=== PATIENT | female | born 1960 | race African-American/Black ===

== ENCOUNTER 2017-03-11 08:53 | Inpatient (IN) | payer OTHER ==
[2017-03-11 09:08] VITALS: BMI 27.3
--- NOTE | 2017-03-11 10:19 | HP ---
CIWA Score - CIWA Score Nausea/Vomitin-Mild Nausea/No Vomiting Muscle Tremors: 4-Moderate,w/Arms Extend Anxiety: 4-Mod. Anxious/Guarded Agitation: 1-Slight > Activity Paroxysmal Sweats: 1-Minimal Palms Moist Orientation: 0-Oriented Tacttile Disturbances: 0-None Auditory Disturbances: 0-None Visual Disturbances: 1-Very Mild Sensitivity Headache: 2-Mild CIWA-Ar Total Score: 14 Admission ROS BHS - HPI Chief Complaint: I can't stop drinking Allergies/Adverse Reactions: Allergies Allergy/AdvReac Type Severity Reaction Status Date / Time metoprolol Allergy Severe Itching Verified 03/11/17 10:06 History of Present Illness: 56 yo woman here for detox from alcohol. Previous detox here 07/11/2016 but relapsed. Patient has not had seizures but has had black outs. History of rehab when living in [place]. Also with pacemaker since January 2016 but has not had it checked since October 2016. Exam Limitations: Clinical Condition - Ebola screening Have you traveled outside of the country in the last 21 days: No Have you had contact with anyone from an Ebola affected area: No Have you been sick,other than usual withdrawal symptoms: No Do you have a fever: No - Review of Systems Constitutional: Chills, Loss of Appetite, Night Sweats, Changes in sleep, Weakness EENT: reports: Blurred Vision Respiratory: reports: No Symptoms reported Cardiac: reports: No Symptoms Reported GI: reports: Poor Appetite, Indigestion : reports: Frequency Musculoskeletal: reports: Back Pain, Muscle Pain Integumentary: reports: Dryness, Rash (inner flexors both arms) Neuro: reports: Headache Endocrine: reports: No Symptoms Reported Hematology: reports: No Symptoms Reported Psychiatric: reports: Judgement Intact, Mood/Affect Appropiate, Orientated x3, Anxious Other Systems: Reviewed and Negative Patient History - Patient Medical History Hx Anemia: No Hx Asthma: No Hx Chronic Obstructive Pulmonary Disease (COPD): No Hx Cancer: No Hx Cardiac Disorders: Yes (HYPERTROPHIC CARDIOMYOPATHY) Hx Congestive Heart Failure: No Hx Hypertension: Yes (on med) Hx Hypercholesterolemia: Yes (on med) Hx Pacemaker: Yes (in 02/10) HX Cerebrovascular Accident: No Hx Seizures: No Hx Dementia: No Hx Diabetes: No Hx Gastrointestinal Disorders: No Hx Liver Disease: No Hx Genitourinary Disorders: No Hx Sexually Transmitted Disorders: No Hx Renal Disease (ESRD): No Hx Thyroid Disease: No Hx Human Immunodeficiency Virus (HIV): No Hx Hepatitis C: No Hx Depression: Yes (hx psych) Hx Suicide Attempt: No Hx Bipolar Disorder: No Hx Schizophrenia: No - Patient Surgical History Past Surgical History: No Hx Neurologic Surgery: No Hx Cataract Extraction: No Hx Cardiac Surgery: Yes (s/p pace maker in 02/10) Hx Lung Surgery: No Hx Breast Surgery: No Hx Breast Biopsy: No Hx Abdominal Surgery: No Hx Appendectomy: No Hx Cholecystectomy: No Hx Genitourinary Surgery: No Hx Section: No Hx Orthopedic Surgery: No Anesthesia Reaction: No - PPD History Previous Implant?: Yes Documented Results: Negative w/proof Date: 02/08/16 Results: 0 mm PPD to be Administered?: Yes - Reproductive History Patient is a Female of Child Bearing Age (11 -55 yrs old): No - Smoking Cessation Smoking history: Current every day smoker Have you smoked in the past 12 months: Yes Aproximately how many cigarettes per day: 10 Cigars Per Day: 0 Hx Chewing Tobacco Use: No Initiated information on smoking cessation: Yes 'Breaking Loose' booklet given: 03/11/17 (give on floor) - Substance & Tx. History Hx Alcohol Use: Yes Hx Substance Use: No Substance Use Type: Alcohol Hx Substance Use Treatment: Yes (detox [facility] 06/2016, rehab in [facility]) - Substances Abused Alcohol Route: Oral Frequency: Daily Amount used: beer- 16 (12oz) Age of first use: 12 Date of Last Use: 03/10/17 Family Disease History - Family Disease History Family Disease History: Heart Disease: Sister (htn, etoh), Daughter, CA: Father (lung cancer (alive)), Other: Father, Mother (dementia (alive)), Sister, Daughter Admission Physical Exam BHS - Vital Signs Vital Signs: Vital Signs - 24 hr 03/11/17 08:56 Temperature 97.7 F Pulse Rate 84 Respiratory 20 Rate Blood Pressure 178/92 - Physical General Appearance: Yes: Nourished, Appropriately Dressed, Mild Distress, Anxious HEENTM: Yes: Hearing grossly Normal, Normal ENT Inspection, Normocephalic, Normal Voice, Pharynx Normal Respiratory: Yes: Normal Breath Sounds, No Respiratory Distress Neck: Yes: No masses,lesions,Nodules, Supple, Trachea in good position Breast: Yes: Breast Exam Deferred Cardiology: Yes: Regular Rhythm, Regular Rate, Surgical Scar (pacemaker) Abdominal: Yes: Soft Genitourinary: Yes: Frequency Back: Yes: Normal Inspection Musculoskeletal: Yes: full range of Motion, Gait Steady, Back pain Extremities: Yes: Normal Inspection, Normal Range of Motion, Non-Tender Neurological: Yes: Fully Oriented, Alert, Normal Mood/Affect, Normal Response Integumentary: Yes: Normal Color, Warm, Rash (faint erythematous rash both inner elbows) Lymphatic: Yes: Within Normal Limits - Diagnostic (1) Alcohol dependence with uncomplicated withdrawal Current Visit: Yes Status: Chronic (2) Hypertensive hypertrophic cardiomyopathy, without heart failure Current Visit: Yes Status: Chronic (3) Nicotine dependence Current Visit: Yes Status: Chronic Qualifiers: Nicotine product type: cigarettes Substance use status: uncomplicated Qualified Code(s): F17.210 - Nicotine dependence, cigarettes, uncomplicated (4) History of cardiac pacemaker in situ Current Visit: Yes Status: Chronic (5) Hypertrophic cardiomyopathy Current Visit: Yes Status: Chronic (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
[2017-03-11] MEDS ORDERED: IBUPROFEN 400 MG TABLET (FP) PO PRN (10:28)
[2017-03-11] MEDS ORDERED: MAG HYDROX/AL HYDROX/SIMETH 30 ML UNIT-DOSE CUP PO PRN (10:28)
[2017-03-11] MEDS ORDERED: NICOTINE POLACRILEX 4 MG GUM BUC PRN (10:28)
[2017-03-11] MEDS ORDERED: guaiFENesin/D-METHORPHAN HB 10 ML UNIT-DOSE CUPS PO PRN (10:28)
[2017-03-11] MEDS ORDERED: chlordiazePOXIDE HCL 25 MG CAPSULE PO PRN (10:28)
[2017-03-11] MEDS ORDERED: hydrOXYzine PAMOATE 50 MG CAPSULE (FP) PO PRN (10:28)
[2017-03-11] MEDS ORDERED: LOPERAMIDE HCL 2 MG CAPSULE PO PRN (10:28)
[2017-03-11] MEDS ORDERED: MAGNESIUM CITRATE 300 ML BOTTLE PO PRN (10:28)
[2017-03-11] MEDS ORDERED: P-EPHED 60MG/TRIPROLIDI 2.5MG TABLET PO PRN (10:28)
[2017-03-11] MEDS ORDERED: MENTHOL/PHENOL 1 EACH UD MM PRN (10:28)
[2017-03-11] MEDS ORDERED: MAGNESIUM HYDROX 2400MG/30ML ORAL SUSPENSION 30 ML CUP PO PRN (10:28)
[2017-03-11] MEDS ORDERED: ACETAMINOPHEN 325 MG TABLET (FP) PO PRN (11:18)
[2017-03-11] MEDS ORDERED: chlordiazePOXIDE HCL 25 MG CAPSULE PO ONE ×2 (11:30→14:15)
[2017-03-11] MEDS: ATENOLOL 25 MG TABLET (FP) PO SCH (14:27)
[2017-03-11] MEDS: CLOTRIMAZOLE 1% CREAM 15 GM TUBE TP SCH ×2 (14:28→22:06)
[2017-03-11] MEDS: CLOPIDOGREL BISULFATE 75 MG TABLET (FP) PO SCH (14:29)
[2017-03-11] MEDS: VERAPAMIL HCL 120 MG CAP SUSTAINED RELEASE PO SCH (14:29)
[2017-03-11] MEDS: ASPIRIN 81 MG CHEWABLE TABLETS PO SCH (14:30)
--- NOTE | 2017-03-11 14:48 | CONSULT ---
[facility] Psychiatric Consult - Data Date of interview: 03/11/17 Admission source: [facility] Identifying data: Readmission to [facility] for this 56 y/o AA female seeking detox treatment on for alcohol dependence.Patient is single,a mother of one,domiciled,unemployed and supported on [facility] benefits. Substance Abuse History: Patient admits to using alcohol since age 12.Currently consumes a daily average of 14-15 X 12 oz of beer.Last use was on 03/10/17.Ms Hassan presents with a history of previous detox/rehab care in [facility]. Medical History: Remarkable for hypertension,back pain,hypercholesterolemia and hypertrophic cardiomyopathy (pacemaker in place since January 2016).Allergic to metoprolol. Psychiatric History: No reported history of psychiatric hospitalizations.Patient indicates that she had a brief stay on a psychiatric josé in [facility] six years ago," just because a bed was not available on the detox unit " and got transferred as soon a vacancy opened in detox.Ms Hassan does however endorse the diagnosis of MDD without a history of regular treatment.Patient relocated to [facility] about three years ago.No history of OPD care.Not on psychotropic medications with the exception of trazodone 50 mg/hs to address insomnia (prescribed by primary care doctor).Patient denies history of suicide attempts. Physical/Sexual Abuse/Trauma History: Patiuent denies. Additional Comment: Drug Screen is negative. Mental Status Exam - Mental Status Exam Alert and Oriented to: Time, Place, Person Cognitive Function: Good Patient Appearance: Well Groomed Mood: Hopeful, Euthymic Affect: Appropriate, Normal Range Patient Behavior: Fatigued, Cooperative (well-mannered) Speech Pattern: Clear, Appropriate Voice Loudness: Normal Thought Process: Intact, Goal Oriented Thought Disorder: Not Present Hallucinations: Denies Suicidal Ideation: Denies Homicidal Ideation: Denies Insight/Judgement: Fair Sleep: Poorly, Difficulty falling asleep Appetite: Fair Muscle strength/Tone: Normal Gait/Station: Normal Psychiatric Findings - Problem List ([place] 1, 2,3) (1) Alcohol dependence with uncomplicated withdrawal Current Visit: Yes Status: Acute (2) Nicotine dependence Current Visit: Yes Status: Acute Qualifiers: Nicotine product type: cigarettes Substance use status: uncomplicated Qualified Code(s): F17.210 - Nicotine dependence, cigarettes, uncomplicated (3) Alcohol-induced mood disorder Current Visit: Yes Status: Acute (4) History of cardiac pacemaker in situ Current Visit: Yes Status: Chronic (5) Hypertrophic cardiomyopathy Current Visit: Yes Status: Chronic (6) HTN (hypertension) Current Visit: Yes Status: Chronic (7) Hyperlipidemia Current Visit: Yes Status: Chronic (8) Insomnia Current Visit: Yes Status: Acute - Initial Treatment Plan Initial Treatment Plan: Previous records are reviewed.S report is appreciated.Psychoeducation provided in this session.Detoxification is under way.Trazodone 50 mg po hs is ordered at patient's request.Side effects/benefits of trazodone are discussed with patient.She endorses past history of favorable response/good tolerability to the drug.Consent (verbal) given.Observation.
[2017-03-11] MEDS: chlordiazePOXIDE HCL 25 MG CAPSULE PO SCH ×2 (17:22→22:05)
[2017-03-11 18:21] LABS: URINE APPEARANCE SLCLOUDY; URINE BILIRUBIN NEGATIVE (NEGATIVE); URINE BLOOD NEGATIVE (NEGATIVE); URINE COLOR LTYELLOW; URINE GLUCOSE (UA) NEGATIVE (NEGATIVE); URINE KETONE NEGATIVE (NEGATIVE); URINE NITRITE NEGATIVE (NEGATIVE); URINE PROTEIN NEGATIVE (NEGATIVE); URINE UROBILINOGEN NEGATIVE mg/dL (0.2-1.0)
[2017-03-11 18:24] LABS: URINE LEUK ESTERASE 3+ (NEGATIVE)
[2017-03-11 18:32] LABS: URINE BACTERIA RARE /hpf (NONE SEEN); URINE RBC 1 /hpf (0-3); URINE WBC 12 /hpf (3-5)
[2017-03-11] MEDS ORDERED: ATORVASTATIN CA 40 MG TABLET (FP) ONE (21:12)
[2017-03-11] MEDS ORDERED: diphenhydrAMINE HCL 50 MG CAPSULE PO PRN (22:00)
[2017-03-11] MEDS: traZODone HCL 50 MG TABLET (FP) PO SCH ×2 (22:05→22:09)
[2017-03-11] MEDS: ATORVASTATIN CA 80 MG TABLET (FP) PO SCH (22:06)
[2017-03-11] MEDS: THIAMINE HCL 100 MG TABLET (FP) PO SCH (22:07)
[2017-03-12] MEDS: chlordiazePOXIDE HCL 25 MG CAPSULE PO SCH ×4 (06:17→22:29)
--- NOTE | 2017-03-12 07:57 | PN ---
S CIWA - CIWA Score Nausea/Vomitin Muscle Tremors: 3 Anxiety: 3 Agitation: 2 Paroxysmal Sweats: 1-Minimal Palms Moist Orientation: 0-Oriented Tacttile Disturbances: 1-Very Mild Itch/Numbness Auditory Disturbances: 1-Very Mild Visual Disturbances: 1-Very Mild Sensitivity Headache: 2-Mild CIWA-Ar Total Score: 17 BHS Progress Note (SOAP) Subjective: alert,irritable,anxious,interrupted sleep,tremor,pain in the lower back Objective: Vital Signs Temperature 97.7 F 03/12/17 06:00 Pulse Rate 77 03/12/17 06:00 Respiratory Rate 18 03/12/17 06:00 Blood Pressure 141/71 03/12/17 06:00 O2 Sat by Pulse Oximetry (%) ekg nsr inverted t in avl no chest pain,no sob,no dizziness labs pending Assessment: 03/12/17 07:57 withdrawal symptom Plan: continue detox
[2017-03-12 10:06] LABS: MCH 31.9 pg (25.7-33.7); MCHC 32.8 g/dl (32.0-36.0); MEAN CELL VOLUME 97.1 fl (80-96); MEAN PLT VOLUME 8.9 fl (7.5-11.1); PLATELET COUNT 205 K/MM3 (134-434); RDW 13.7 % (11.6-15.6)
[2017-03-12] MEDS: ASPIRIN 81 MG CHEWABLE TABLETS PO SCH (10:17)
[2017-03-12] MEDS: CLOTRIMAZOLE 1% CREAM 15 GM TUBE TP SCH ×2 (10:18→22:28)
[2017-03-12] MEDS: ATENOLOL 25 MG TABLET (FP) PO SCH (10:18)
[2017-03-12] MEDS: VERAPAMIL HCL 120 MG CAP SUSTAINED RELEASE PO SCH (10:18)
[2017-03-12] MEDS: PRENATAL VITAMINS W/ FOLIC ACID TABLET (FP) PO SCH (10:19)
[2017-03-12] MEDS: CLOPIDOGREL BISULFATE 75 MG TABLET (FP) PO SCH (10:19)
[2017-03-12 10:25] LABS: ALK PHOS 68 U/L (45-117); ANION GAP 7 (8-16); BILIRUBIN,TOTAL 0.4 mg/dL (0.2-1.0); CALCIUM 9.2 mg/dL (8.5-10.1); CO2 28 mmol/L (21-32); CREATININE 0.8 mg/dL (0.55-1.02); GLUCOSE,RANDOM 89 mg/dL (74-106); SGOT/AST 17 U/L (15-37); SGPT/ALT 28 U/L (12-78); TOT PROT 5.9 g/dl (6.4-8.2)
--- NOTE | 2017-03-12 13:27 | EKG ---
Test Reason : Blood Pressure : / mmHG Vent. Rate : 078 BPM Atrial Rate : 078 BPM P-R Int : 138 ms QRS Dur : 094 ms QT Int : 416 ms P-R-T Axes : 061 004 092 degrees QTc Int : 474 ms NORMAL SINUS RHYTHM RIGHT ATRIAL ENLARGEMENT VOLTAGE CRITERIA FOR LEFT VENTRICULAR HYPERTROPHY ABNORMAL QRS-T ANGLE, CONSIDER PRIMARY T WAVE ABNORMALITY ABNORMAL ECG WHEN COMPARED WITH ECG OF 09-FEB-2016 16:28, NO SIGNIFICANT CHANGE WAS FOUND Confirmed by HINA BORJAS MD ([id number]) on 03/12/2017 1:27:40 PM Referred By: Confirmed By:HINA BORJAS MD
[2017-03-12] MEDS ORDERED: ATORVASTATIN CA 40 MG TABLET (FP) ONE (20:29)
[2017-03-12] MEDS: ATORVASTATIN CA 80 MG TABLET (FP) PO SCH (22:28)
[2017-03-12] MEDS: THIAMINE HCL 100 MG TABLET (FP) PO SCH (22:29)
[2017-03-12] MEDS: traZODone HCL 50 MG TABLET (FP) PO SCH (22:29)
[2017-03-12] MEDS: CYCLOBENZAPRINE HCL 10 MG TABLET (FP) PO PRN (22:29)
[2017-03-13] MEDS: chlordiazePOXIDE HCL 25 MG CAPSULE PO SCH ×2 (05:43→10:26)
--- NOTE | 2017-03-13 08:43 | PN ---
[facility] CIWA - CIWA Score Nausea/Vomitin-No Nausea/No Vomiting Muscle Tremors: 3 Anxiety: 2 Agitation: 3 Paroxysmal Sweats: 3 Orientation: 0-Oriented Tacttile Disturbances: 0-None Auditory Disturbances: 0-None Visual Disturbances: 0-None Headache: 0-None Present CIWA-Ar Total Score: 11 S Progress Note (SOAP) Subjective: feeling better sweats anxious Objective: 03/13/17 08:41 Vital Signs Temperature 97.9 F 03/13/17 06:05 Pulse Rate 74 03/13/17 06:05 Respiratory Rate 18 03/13/17 06:05 Blood Pressure 131/74 03/13/17 06:05 O2 Sat by Pulse Oximetry (%) Laboratory Tests 03/11/17 03/12/17 03/12/17 15:52 07:15 07:15 WBC 7.0 RBC 4.34 Hgb 13.8 Hct 42.1 MCV 97.1 H MCH 31.9 MCHC 32.8 RDW 13.7 Plt Count 205 MPV 8.9 Sodium 141 Potassium 4.1 Chloride 106 Carbon Dioxide 28 Anion Gap 7 L BUN 14 D Creatinine 0.8 Creat Clearance w eGFR > 60 Random Glucose 89 D Calcium 9.2 Total Bilirubin 0.4 AST 17 ALT 28 Alkaline Phosphatase 68 Total Protein 5.9 L Albumin 3.0 L Urine Color Ltyellow Urine Appearance Slcloudy Urine pH 5.0 Ur Specific [place] <= 1.005 Urine Protein Negative Urine Glucose (UA) Negative Urine Ketones Negative Urine Blood Negative Urine Nitrite Negative Urine Bilirubin Negative Urine Urobilinogen Negative Ur Leukocyte Esterase 3+ H Urine RBC 1 Urine WBC 12 Ur Epithelial Cells Few Urine Bacteria Rare RPR Titer 03/12/17 07:15 WBC RBC Hgb Hct MCV MCH MCHC RDW Plt Count MPV Sodium Potassium Chloride Carbon Dioxide Anion Gap BUN Creatinine Creat Clearance w eGFR Random Glucose Calcium Total Bilirubin AST ALT Alkaline Phosphatase Total Protein Albumin Urine Color Urine Appearance Urine pH Ur Specific [place] Urine Protein Urine Glucose (UA) Urine Ketones Urine Blood Urine Nitrite Urine Bilirubin Urine Urobilinogen Ur Leukocyte Esterase Urine RBC Urine WBC Ur Epithelial Cells Urine Bacteria RPR Titer Nonreactive repeat u/a awake/alert ambulating no acute distress Assessment: 03/13/17 08:42 mild withdrawal sx Plan: continue detox increase fluids f/u pending labs
[2017-03-13] MEDS: CLOTRIMAZOLE 1% CREAM 15 GM TUBE TP SCH ×2 (10:25→22:20)
[2017-03-13] MEDS: PRENATAL VITAMINS W/ FOLIC ACID TABLET (FP) PO SCH (10:25)
[2017-03-13] MEDS: CLOPIDOGREL BISULFATE 75 MG TABLET (FP) PO SCH (10:26)
[2017-03-13] MEDS: ASPIRIN 81 MG CHEWABLE TABLETS PO SCH (10:26)
[2017-03-13] MEDS: LIDOCAINE 5% TOPICAL PATCH TP SCH (10:26)
[2017-03-13] MEDS: VERAPAMIL HCL 120 MG CAP SUSTAINED RELEASE PO SCH (10:27)
[2017-03-13] MEDS: ATENOLOL 25 MG TABLET (FP) PO SCH (10:28)
[2017-03-13] MEDS: CYCLOBENZAPRINE HCL 10 MG TABLET (FP) PO PRN ×2 (10:29→22:19)
[2017-03-13 16:03] LABS: URINE APPEARANCE CLEAR; URINE BILIRUBIN NEGATIVE (NEGATIVE); URINE BLOOD NEGATIVE (NEGATIVE); URINE COLOR LTYELLOW; URINE GLUCOSE (UA) NEGATIVE (NEGATIVE); URINE KETONE NEGATIVE (NEGATIVE); URINE NITRITE NEGATIVE (NEGATIVE); URINE PROTEIN NEGATIVE (NEGATIVE); URINE UROBILINOGEN NEGATIVE mg/dL (0.2-1.0)
[2017-03-13 16:04] LABS: URINE LEUK ESTERASE TRACE (NEGATIVE)
[2017-03-13 16:30] LABS: URINE MUCUS RARE; URINE RBC 1 /hpf (0-3); URINE WBC 1 /hpf (3-5)
[2017-03-13] MEDS: chlordiazePOXIDE 5 MG CAPSULE PO SCH ×2 (17:31→22:19)
[2017-03-13] MEDS ORDERED: ATORVASTATIN CA 40 MG TABLET (FP) ONE (20:42)
[2017-03-13] MEDS: THIAMINE HCL 100 MG TABLET (FP) PO SCH (22:19)
[2017-03-13] MEDS: LIDOCAINE PATCH REMOVAL MC SCH (22:20)
[2017-03-13] MEDS: ATORVASTATIN CA 80 MG TABLET (FP) PO SCH (22:20)
[2017-03-13] MEDS: traZODone HCL 50 MG TABLET (FP) PO SCH (22:23)
[2017-03-14] MEDS: chlordiazePOXIDE 5 MG CAPSULE PO SCH ×2 (05:57→10:20)
--- NOTE | 2017-03-14 10:09 | PN ---
BHS Progress Note (SOAP) Subjective: feeling better some sweats anxious Objective: 03/14/17 10:08 Vital Signs Temperature 97.9 F 03/14/17 06:29 Pulse Rate 71 03/14/17 06:29 Respiratory Rate 18 03/14/17 06:29 Blood Pressure 135/76 03/14/17 06:29 O2 Sat by Pulse Oximetry (%) Laboratory Tests 03/11/17 03/12/17 03/12/17 15:52 07:15 07:15 WBC 7.0 RBC 4.34 Hgb 13.8 Hct 42.1 MCV 97.1 H MCH 31.9 MCHC 32.8 RDW 13.7 Plt Count 205 MPV 8.9 Sodium 141 Potassium 4.1 Chloride 106 Carbon Dioxide 28 Anion Gap 7 L BUN 14 D Creatinine 0.8 Creat Clearance w eGFR > 60 Random Glucose 89 D Calcium 9.2 Total Bilirubin 0.4 AST 17 ALT 28 Alkaline Phosphatase 68 Total Protein 5.9 L Albumin 3.0 L Urine Color Ltyellow Urine Appearance Slcloudy Urine pH 5.0 Ur Specific [place] <= 1.005 Urine Protein Negative Urine Glucose (UA) Negative Urine Ketones Negative Urine Blood Negative Urine Nitrite Negative Urine Bilirubin Negative Urine Urobilinogen Negative Ur Leukocyte Esterase 3+ H Urine RBC 1 Urine WBC 12 Ur Epithelial Cells Few Urine Bacteria Rare Urine Mucus RPR Titer 03/12/17 03/13/17 07:15 10:10 WBC RBC Hgb Hct MCV MCH MCHC RDW Plt Count MPV Sodium Potassium Chloride Carbon Dioxide Anion Gap BUN Creatinine Creat Clearance w eGFR Random Glucose Calcium Total Bilirubin AST ALT Alkaline Phosphatase Total Protein Albumin Urine Color Ltyellow Urine Appearance Clear Urine pH 5.0 Ur Specific [place] 1.015 Urine Protein Negative Urine Glucose (UA) Negative Urine Ketones Negative Urine Blood Negative Urine Nitrite Negative Urine Bilirubin Negative Urine Urobilinogen Negative Ur Leukocyte Esterase Trace H D Urine RBC 1 Urine WBC 1 Ur Epithelial Cells Rare Urine Bacteria Urine Mucus Rare RPR Titer Nonreactive awake/alert ambulating no acute distress Assessment: 03/14/17 10:08 withdrawal sx Plan: continue detox increase fluids
[2017-03-14] MEDS: ATENOLOL 25 MG TABLET (FP) PO SCH (10:19)
[2017-03-14] MEDS: PRENATAL VITAMINS W/ FOLIC ACID TABLET (FP) PO SCH (10:19)
[2017-03-14] MEDS: ASPIRIN 81 MG CHEWABLE TABLETS PO SCH (10:20)
[2017-03-14] MEDS: CYCLOBENZAPRINE HCL 10 MG TABLET (FP) PO PRN (10:20)
[2017-03-14] MEDS: CLOPIDOGREL BISULFATE 75 MG TABLET (FP) PO SCH (10:20)
[2017-03-14] MEDS: VERAPAMIL HCL 120 MG CAP SUSTAINED RELEASE PO SCH (10:21)
[2017-03-14] MEDS: CLOTRIMAZOLE 1% CREAM 15 GM TUBE TP SCH ×2 (10:21→22:30)
[2017-03-14] MEDS: LIDOCAINE 5% TOPICAL PATCH TP SCH (10:21)
[2017-03-14] MEDS: chlordiazePOXIDE HCL 10 MG CAPSULE PO SCH ×2 (19:24→22:30)
[2017-03-14] MEDS ORDERED: ATORVASTATIN CA 40 MG TABLET (FP) ONE (21:29)
[2017-03-14] MEDS: LIDOCAINE PATCH REMOVAL MC SCH (22:30)
[2017-03-14] MEDS: ATORVASTATIN CA 80 MG TABLET (FP) PO SCH (22:30)
[2017-03-14] MEDS: THIAMINE HCL 100 MG TABLET (FP) PO SCH (22:30)
[2017-03-14] MEDS: traZODone HCL 50 MG TABLET (FP) PO SCH (22:31)
[2017-03-15] MEDS: chlordiazePOXIDE HCL 10 MG CAPSULE PO SCH (05:45)
[2017-03-15 06:51] VITALS: BP 127/77; PULSE 72; TEMP 97
--- NOTE | 2017-03-15 09:58 | DS ---
[facility] Detox Discharge Summary Admission Date: 03/11/17 Discharge Date: 03/15/17 - History Present History: Alcohol Dependence - Physical Exam Results Vital Signs: Vital Signs Temperature 97 F L 03/15/17 06:50 Pulse Rate 72 03/15/17 06:50 Respiratory Rate 18 03/15/17 06:50 Blood Pressure 127/77 03/15/17 06:50 O2 Sat by Pulse Oximetry (%) - Treatment Hospital Course: Detox Protocol Followed, Detoxed Safely, Responded well, Discharged Condition Good, Rehab Referral Accepted - Medication Discharge Medications: Ambulatory Orders Verapamil HCl [Verapamil ER] 120 mg PO DAILY 02/06/16 Aspirin [ASA -] 81 mg PO DAILY 07/13/16 Atenolol [Tenormin -] 25 mg PO DAILY 07/13/16 Atorvastatin Ca [Lipitor] 80 mg PO HS 07/13/16 Clopidogrel Bisulfate [Clopidogrel] 75 mg PO DAILY 07/13/16 Trazodone HCl [Desyrel -] 50 mg PO HS #30 tablet 07/14/16 Trazodone HCl 50 mg PO HS #30 tablet 03/11/17 - Diagnosis (1) Alcohol-induced mood disorder Current Visit: Yes Status: Acute (2) Insomnia Current Visit: Yes Status: Acute (3) Nicotine dependence Current Visit: Yes Status: Chronic Qualifiers: Nicotine product type: cigarettes Substance use status: uncomplicated Qualified Code(s): F17.210 - Nicotine dependence, cigarettes, uncomplicated (4) 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 (5) HTN (hypertension) Current Visit: Yes Status: Chronic Qualifiers: Hypertension type: essential hypertension Qualified Code(s): I10 - Essential (primary) hypertension (6) History of cardiac pacemaker in situ Current Visit: Yes Status: Chronic (7) Hyperlipidemia Current Visit: Yes Status: Chronic Qualifiers: Hyperlipidemia type: pure hypercholesterolemia Qualified Code(s): E78.00 - Pure hypercholesterolemia, unspecified; E78.0 - Pure hypercholesterolemia (8) Hypertensive hypertrophic cardiomyopathy, without heart failure Current Visit: Yes Status: Chronic (9) Hypertrophic cardiomyopathy Current Visit: Yes Status: Chronic (10) Abnormal EKG Current Visit: No Status: Acute (11) Chest pain Current Visit: No Status: Acute (12) Drug-induced mood disorder Current Visit: No Status: Acute (13) NSVT (nonsustained ventricular tachycardia) Current Visit: No Status: Acute (14) Syncope Current Visit: No Status: Acute (15) Tachycardia Current Visit: No Status: Acute (16) Depression Current Visit: No Status: Chronic - AMA Did Patient Leave Against Medical Advice: No
[2017-03-15] MEDS: LIDOCAINE 5% TOPICAL PATCH TP SCH (10:00)
[2017-03-15] MEDS: CLOPIDOGREL BISULFATE 75 MG TABLET (FP) PO SCH (10:04)
[2017-03-15] MEDS: ATENOLOL 25 MG TABLET (FP) PO SCH (10:04)
[2017-03-15] MEDS: PRENATAL VITAMINS W/ FOLIC ACID TABLET (FP) PO SCH (10:04)
[2017-03-15] MEDS: VERAPAMIL HCL 120 MG CAP SUSTAINED RELEASE PO SCH (10:04)
[2017-03-15] MEDS: CLOTRIMAZOLE 1% CREAM 15 GM TUBE TP SCH (10:04)
[2017-03-15] MEDS: ASPIRIN 81 MG CHEWABLE TABLETS PO SCH (10:04)
== END 2017-03-15 10:25 | disposition home or self-care (01) | DRG 897 ==
LOC: YASAS 08:53 → Y6N 10:47 → Y3N 11:38 → Y6N 12:30
PROVIDERS: ADMIT Internal Medicine; ATTEND Internal Medicine
PROC: HZ2ZZZZ Detoxification Services for Substance Abuse Treatment (ICD-10-PCS; principal; 2017-03-15)
DX: F19.230 Other psychoactive substance dependence with withdrawal, uncomplicated (principal); I42.2 Other hypertrophic cardiomyopathy; F10.230 Alcohol dependence with withdrawal, uncomplicated; F17.210 Nicotine dependence, cigarettes, uncomplicated; F10.24 Alcohol dependence with alcohol-induced mood disorder; I10 Essential (primary) hypertension; E78.5 Hyperlipidemia, unspecified; E78.00 Pure hypercholesterolemia, unspecified; F32.9 Major depressive disorder, single episode, unspecified; B37.2 Candidiasis of skin and nail; Z95.0 Presence of cardiac pacemaker
CPT/HCPCS: 36415; 80053; 81003; 81015; 85027; 86593; 87086; 93005; 93010

== ENCOUNTER 2018-07-18 18:01 | Inpatient (IN) | payer OTHER ==
[2018-07-18 19:35] LABS: BASO % 1.5 % (0-2.0); EOS % 0.7 % (0-4.5); HEMATOCRIT 40.9 % (32.4-45.2); HEMOGLOBIN 14.4 GM/dL (10.7-15.3); MCH 32.9 pg (25.7-33.7); MCHC 35.2 g/dl (32.0-36.0); MEAN CELL VOLUME 93.5 fl (80-96); MEAN PLT VOLUME 9.1 fl (7.5-11.1); MONO % 10.8 % (3.8-10.2); PLATELET COUNT 243 K/MM3 (134-434); RBC 4.38 M/mm3 (3.60-5.2); RDW 14.1 % (11.6-15.6); WHITE BLOOD COUNT 6.5 K/mm3 (4.0-10.0)
[2018-07-18 19:51] LABS: URINE APPEARANCE CLEAR; URINE BILIRUBIN NEGATIVE (<2.0 mg/dL); URINE COLOR STRAW; URINE GLUCOSE (UA) NEGATIVE (NEGATIVE); URINE KETONE NEGATIVE (NEGATIVE); URINE LEUK ESTERASE 2+ (NEGATIVE); URINE NITRITE NEGATIVE (NEGATIVE); URINE PROTEIN NEGATIVE (NEGATIVE); URINE UROBILINOGEN NEGATIVE mg/dL (0.2-1.0)
[2018-07-18 19:56] LABS: EPI CELLS RARE /HPF (FEW)
--- NOTE | 2018-07-18 20:05 | PDOC ---
Attending Attestation - HPI HPI: 07/18/18 20:29 The patient is a 58 year old female, with a significant past medical history of HOCM (s/p AICD placement and noncompliant with medications), HTN, HLD,CAD ( needs stenting), and alcohol abuse (increased alcohol usage this week), who presents to the emergency department s/p 3 shocks from her defibrillator. As per patient, while walking her dog she began to feel increasingly short of breath and felt her AICD go off 3 times in approximately 2 minutes, prompting her visit to the ER tonight. She denies any loss of consciousness, head/neck trauma, or chest pain. Allergies: Metoprolol Social history: Alcohol abuse. Wardsperson: Dr. Carrillo <Mellisa Mckinley - Last Filed: 07/18/18 20:29> - Resident Resident Name: ArreolaCheri - ED Attending Attestation I have performed the following: I have examined & evaluated the patient, The case was reviewed & discussed with the resident, I agree w/resident's findings & plan, Exceptions are as noted - Physicial Exam PE: 07/18/18 21:14 Agree with exam documented by resident - Medical Decision Making 07/18/18 21:18 Patient with many cardiac risk factor here stating she felt her AICD shock her several times today. Denies any chest pain but states that she felt some extra beats, mild SOB, lightheadedness immediately prior to being shocked. She was walking her dog when the episode occurred. EKG with pvcs, prolonged QT Concern for malignant rhythm Follow up labs, interrogate device Admit 07/18/18 21:21 Received call from [facility], device shocked her out of VTach after 9 shocks Lab shows trop of 0.7, considering multiple shocks this result is likely secondary to direct electrical cardiac injury but will trend trop. ACS remains on the differential Cardiology eval Admit tele <Morgan Tate - Last Filed: 07/18/18 21:23> Attestations - Attestations 07/18/18 20:29 Documentation prepared by Mellisa Mckinley, acting as medical imaging technologist for Morgan Tate MD. <Mellisa Mckinley - Last Filed: 07/18/18 20:29>
[2018-07-18 20:12] LABS: ALBUMIN 3.9 g/dl (3.4-5.0); ALK PHOS 79 U/L (45-117); ANION GAP 11 MMOL/L (8-16); BILIRUBIN,TOTAL 0.7 mg/dL (0.2-1); BLOOD UREA NITROGEN 12 mg/dL (7-18); CALCIUM 9.1 mg/dL (8.5-10.1); CHLORIDE 103 mmol/L (98-107); CO2 25 mmol/L (21-32); CREATININE 0.8 mg/dL (0.55-1.3); GLUCOSE,RANDOM 71 mg/dL (74-106); MAGNESIUM 2.1 mg/dL (1.8-2.4); PHOSPHOROUS 3.6 mg/dL (2.5-4.9); POTASSIUM 4.4 mmol/L (3.5-5.1); SGOT/AST 26 U/L (15-37); SGPT/ALT 24 U/L (13-61); SODIUM 139 mmol/L (136-145); TOT PROT 7.4 g/dl (6.4-8.2)
[2018-07-18 20:17] LABS: INR 0.96 (0.83-1.09); PROTHROMBIN TIME (PATIENT) 11.3 SEC (9.7-13.0)
--- NOTE | 2018-07-18 20:17 | PDOC ---
History of Present Illness - General Chief Complaint: Irregular Heart Beat Stated Complaint: DEFIBRILLATOR ISSUES Time Seen by Provider: 07/18/18 18:44 History Source: Patient, Family Exam Limitations: No Limitations - History of Present Illness Initial Comments: 58YOF with h/o HOCM (s/p AICD placement, not taking her medications atenolol, verapamil, clopidogrel x2 months, sees Dr. Bass but no visit in >1 year) , HTN, HLD (not taking her atorvastatin), CAD (told needs stents placed but has not followed up), and EtOH use disorder (previously was admitted to detox, has increased her EtOH intake over the past few weeks); was BIBEMS after her AICD shocked her 3 times in ~2 minutes at about 5:10 pm. She had been walking her dog outside and exerting herself, felt SOB and a bit lightheaded, then was shocked at that time. She otherwise denies any symptoms of illness lately. Did not lose consciousness, no repeated events. Past History - Past Medical History Allergies/Adverse Reactions: Allergies Allergy/AdvReac Type Severity Reaction Status Date / Time metoprolol Allergy Severe Itching Verified 07/18/18 18:14 Home Medications: Ambulatory Orders Atenolol [Tenormin -] 25 mg PO DAILY 07/13/16 Aspirin [ASA -] 81 mg PO DAILY #30 tab 03/15/17 Atorvastatin Ca [Lipitor] 80 mg PO HS #30 tab 03/15/17 Clopidogrel Bisulfate [Clopidogrel] 75 mg PO DAILY #30 tab 03/15/17 Verapamil HCl [Verapamil Sr] 120 mg PO DAILY #30 cap 03/15/17 Anemia: No Asthma: No Cancer: No Cardiac Disorders: Yes (HYPERTROPHIC CARDIOMYOPATHY) CVA: No COPD: No CHF: No Dementia: No Diabetes: No GI Disorders: No Disorders: No HTN: Yes (on med) Hypercholesterolemia: Yes (on med) Kidney Stones: No Liver Disease: No Seizures: No Thyroid Disease: No - Surgical History Abdominal Surgery: No Appendectomy: No Cardiac Surgery: Yes (s/p pace maker in 02/10) Cholecystectomy: No Lung Surgery: No Neurologic Surgery: No Orthopedic Surgery: No - Reproductive History PID: No - Suicide/Smoking/Psychosocial Hx Smoking History: Current every day smoker Have you smoked in the past 12 months: Yes Number of Cigarettes Smoked Daily: 20 Cigars Per Day: 0 Information on smoking cessation initiated: No 'Breaking Loose' booklet given: 03/11/17 Hx Alcohol Use: Yes (beer) Drug/Substance Use Hx: No Substance Use Type: Alcohol Hx Substance Use Treatment: Yes (detox [facility] 06/2016, rehab in [facility]) Review of Systems - Review of Systems Able to Perform ROS?: Yes Comments:: GEN: generalized weakness (resolved), no fever, chills, malaise, or weight change HEENT: no ear pain, sore throat, vision change, or eye pain CV: lightheadedness, no chest pain, palpitations, syncope, or edema RESP: SOB, no cough, or wheezing GI: no abdominal pain, nausea, vomiting, diarrhea, constipation, or white/black/ bloody stool : no dysuria, hematuria, incontinence, retention, bleeding, or discharge MSK: no neck/back pain, muscle weakness/pain, or joint swelling/pain NEURO: no headache, seizure, vertigo, numbness, tingling, or focal weakness PSYCH: substance use (EtOH), no behavior change SKIN: no jaundice, no rash ROS otherwise negative except as noted in HPI *Physical Exam - Vital Signs Last Vital Signs Temp Pulse Resp BP Pulse Ox 98.0 F 102 H 20 145/109 H 99 07/18/18 18:04 07/18/18 19:05 07/18/18 19:05 07/18/18 19:05 07/18/18 19:07 GENERAL: nontoxic appearing but tearful, A/Ox4, no distress, answers questions appropriately, daughter at bedside HEENT: PERRLA, EOMI, moist mucous membranes NECK/BACK: no midline ttp, no spinal stepoff or deformity, no hematoma, full ROM , neck supple CHEST WALL: AICD in place CARDIOVASCULAR: regular rate/rhythm with +ectopy, very strong pulses palpable through chest wall diffusely, +systolic murmur, no gallop or rub, strong peripheral pulses, capillary refill <2 seconds, extremities wwp, no edema LUNGS/RESPIRATORY: no respiratory distress, CTAB GI/ABDOMEN: symmetric [id number], normoactive BS, soft, no ttp, no midline pulsatile masses : no CVA tenderness EXTREMITIES: no muscle atrophy, no acute deformity, no edema SKIN: warm and dry, no pallor, no jaundice, no rash, no bruising, no skin breakdown, no cuts, no lesions NEUROLOGICAL: GCS 15, CN II-XII grossly intact, 5/5 strength proximally and distally, no facial droop Heart Score/ECG Review #1 07/18/18 21:20 Sinus rhythm, rate 88, one PVC, normal axis, QTc 488, <1 box non-pathological THANG in aVL and V6, new TWI in II, III, aVF, V12 ED Treatment Course - LABORATORY CBC & Chemistry Diagram: 07/18/18 19:10 07/18/18 19:10 - ADDITIONAL ORDERS Additional order review: Laboratory Results 07/18/18 07/18/18 07/18/18 19:40 19:16 19:10 Creatine Kinase Cancelled Troponin I Cancelled B-Natriuretic Peptide 1858.7 H Urine Color Straw Urine Appearance Clear Urine pH 6.0 Ur Specific [place] 1.003 L Urine Protein Negative Urine Glucose (UA) Negative Urine Ketones Negative Urine Blood Negative Urine Nitrite Negative Urine Bilirubin Negative Urine Urobilinogen Negative Ur Leukocyte Esterase 2+ H D Urine WBC (Auto) 15 Urine RBC (Auto) 2 Ur Epithelial Cells Rare 07/18/18 19:10 RBC 4.38 MCV 93.5 MCHC 35.2 RDW 14.1 MPV 9.1 Neutrophils % 64.0 D Lymphocytes % 23.0 D Monocytes % 10.8 H Eosinophils % 0.7 Basophils % 1.5 - RADIOLOGY Radiology Studies Ordered: Category Date Time Status CHEST PA & LAT [RAD] Stat Radiology 07/18/18 19:14 Completed Medical Decision Making - Medical Decision Making 58 YOF with HOCM and AICD indwelling, p/w SOB and lightheadedness, then shocked by her AICD. Initial Vital Signs Temp Pulse Resp BP Pulse Ox 98.0 F 98 H 16 160/99 100 07/18/18 18:04 07/18/18 18:04 07/18/18 18:04 07/18/18 18:04 07/18/18 18:04 Exam: As noted in Physical Exam section. DDX IBNLT: Biggest concern is that she received the AICD shocks in response to potentially lethal arrhythmia, given that she did have symptoms preceding the shock. Also considered are AICD malfunction and we will interrogate it here in the ED. Potentially HOCM, CHF, ACS, electrolyte derangement given drinking, etc. W/U ordered: EKG CXR Labs TX ordered: IVF, monitor EKG: Reviewed; results as noted in ECG Review section. CXR: Cardiomegaly Laboratory Tests 07/18/18 07/18/18 07/18/18 19:10 19:10 19:10 WBC 6.5 RBC 4.38 Hgb 14.4 Hct 40.9 MCV 93.5 MCH 32.9 MCHC 35.2 RDW 14.1 Plt Count 243 MPV 9.1 Absolute Neuts (auto) 4.2 Neutrophils % 64.0 D Lymphocytes % 23.0 D Monocytes % 10.8 H Eosinophils % 0.7 Basophils % 1.5 Nucleated RBC % 0 PT with INR INR Sodium 139 Potassium 4.4 Chloride 103 Carbon Dioxide 25 Anion Gap 11 BUN 12 Creatinine 0.8 Creat Clearance w eGFR > 60 Random Glucose 71 L Calcium 9.1 Phosphorus 3.6 Magnesium 2.1 Total Bilirubin 0.7 AST 26 ALT 24 Alkaline Phosphatase 79 Creatine Kinase 165 Cancelled Creatine Kinase Index 6.4 H* CK-MB (CK-2) 10.6 H Troponin I 0.70 H* Cancelled B-Natriuretic Peptide Total Protein 7.4 Albumin 3.9 Urine Color Urine Appearance Urine pH Ur Specific [place] Urine Protein Urine Glucose (UA) Urine Ketones Urine Blood Urine Nitrite Urine Bilirubin Urine Urobilinogen Ur Leukocyte Esterase Urine WBC (Auto) Urine RBC (Auto) Ur Epithelial Cells 07/18/18 07/18/18 07/18/18 19:10 19:16 19:40 WBC RBC Hgb Hct MCV MCH MCHC RDW Plt Count MPV Absolute Neuts (auto) Neutrophils % Lymphocytes % Monocytes % Eosinophils % Basophils % Nucleated RBC % PT with INR 11.30 INR 0.96 Sodium Potassium Chloride Carbon Dioxide Anion Gap BUN Creatinine Creat Clearance w eGFR Random Glucose Calcium Phosphorus Magnesium Total Bilirubin AST ALT Alkaline Phosphatase Creatine Kinase Creatine Kinase Index CK-MB (CK-2) Troponin I B-Natriuretic Peptide 1858.7 H Total Protein Albumin Urine Color Straw Urine Appearance Clear Urine pH 6.0 Ur Specific [place] 1.003 L Urine Protein Negative Urine Glucose (UA) Negative Urine Ketones Negative Urine Blood Negative Urine Nitrite Negative Urine Bilirubin Negative Urine Urobilinogen Negative Ur Leukocyte Esterase 2+ H D Urine WBC (Auto) 15 Urine RBC (Auto) 2 Ur Epithelial Cells Rare Reassessment: Patient states no symptoms. 07/18/18 21:[address] Talbot. He recommends amiodarone 150mg IVPB given over 10 min. After that will give amiodarone 1 mg/min x6 hours. After that will give amiodarone 0.5 mg/min x18 hours. Admit to telemetry IP if they are able to manage the amio drip. I am placing consult order to Dr. Bass. Pt reports exertional syncope and h/o multiple relatives with heart conditions and AICD. Pt at higher risk given her comorbidities. The Pt is unsafe for discharge at this time. They require further hospital observation, workup, and treatment. Microblog sent to [facility] for admission. Blank Decision to Admit order is placed per ED protocol. 07/18/18 23:14 I spoke with resident on Medicine; patient going to IP Tele Dr. Dumont. Decision to Admit order corrected with Dr. Dumont's name. Patient with HR90, BP 100/80, occasional NSVT on monitor (~6 beats). Patient got amiodarone bolus; now the 1 mg/min solution is running. Daughter Tito has left the department for the night. The patient has given verbal release of information to this daughter. Tito's phone number is [phone] home, cell. *DC/Admit/Observation/Transfer Diagnosis at time of Disposition: Ventricular tachycardia, HOCM (hypertrophic obstructive cardiomyopathy), AICD discharge, Elevated troponin, Alcohol use disorder - Discharge Dispostion Condition at time of disposition: Guarded Decision to Admit order: Yes - Referrals Referrals: Aby Jeronimo [Primary Care Provider] - - Patient Instructions - Post Discharge Activity
[2018-07-18] MEDS ORDERED: chlordiazePOXIDE HCL 25 MG CAPSULE PO ONE (20:29)
[2018-07-18] MEDS ORDERED: chlordiazePOXIDE HCL 25 MG CAPSULE ONE (20:34)
[2018-07-18] MEDS ORDERED: MAGNESIUM SULF 50% (8.12 MEQ/2 ML-1 GM VIAL) IVPB ONE (21:45)
[2018-07-18] MEDS ORDERED: AMIODARONE IN DEXTROSE,ISO-OSM 150 MG/100 ML BAG IVPB ONE (22:26)
[2018-07-18] MEDS ORDERED: AMIODARONE IN DEXTROSE,ISO-OSM 360 MG/200 ML BAG IVPB ONE (22:28)
--- NOTE | 2018-07-18 22:28 | PN ---
Teaching Attending Note Name of Resident: Tee Franks ATTENDING PHYSICIAN STATEMENT I saw and evaluated the patient. I reviewed the resident's note and discussed the case with the resident. I agree with the resident's findings and plan as documented. SUBJECTIVE: Patient is a 58 year old woman with history of hypertrophic cardiomyopathy (s/p AICD placement, not taking her medications atenolol, verapamil, clopidogrel x2 months, sees Dr. Bass but no visit in >1 year), HTN, HLD (not taking her atorvastatin), CAD (told needs stents placed but has not followed up), Tobacco use and alcohol abuse (previously was admitted to detox, has increased her EtOH intake over the past few weeks); was BIBEMS after her AICD shocked her 3 times in ~2 minutes at about 5:10 pm. She had been walking her dog outside and exerting herself, felt SOB and a bit lightheaded, then was shocked at that time. She otherwise denies any symptoms of illness lately. Did not lose consciousness, no repeated events. OBJECTIVE: Alert Vital Signs Period Temp Pulse Resp BP Sys/Jennings Pulse Ox Last 24 Hr 98.0 F 82-102 16-20 134-187/93-109 99-100 HEENT: No Jaundice, eye redness or discharge, PERRLA, EOMI. Normocephalic, atraumatic. External ears are normal; hearing is impaired. No nasal discharge. Neck: Supple, nontender. No palpable adenopathy or thyromegaly. No JVD Chest: Good effort. Clear to auscultation and percussion. Heart: Regular with ectopics. No S3, rub or murmur Abdomen: Not distended, soft, nontender and no HSM. No rebound or guarding. Normoactive bowel sounds. Ext: Peripheral pulses intact. No leg edema. Skin: Warm and dry. No petechiae, rash or ecchymosis. Neuro: Alert. Oriented x3. Not tremulous. CN 2-12 grossly intact. Sensation grossly intact in all four extremities and DTR are symmetric. Current Medications Generic Name Dose Route Start Last Admin Trade Name Freq PRN Reason Stop Dose Admin Amiodarone HCl/Dextrose 360 mg in 200 mls @ 33.333 mls/hr 07/18/18 22:28 22:57 Nexterone 360 Mg/200 Ml Bag IVPB 07/19/18 04:27 33.333 mls/hr ONCE ONE Administration Protocol 1 MG/MIN Amiodarone HCl/Dextrose 360 mg in 200 mls @ 16.667 mls/hr 07/19/18 05:00 Nexterone 360 Mg/200 Ml Bag IVPB TITR YADY Protocol 0.5 MG/MIN Home Medications Medication Instructions Recorded Atenolol [Tenormin -] 25 mg PO DAILY 07/13/16 Aspirin [ASA -] 81 mg PO DAILY #30 tab 03/15/17 Atorvastatin Ca [Lipitor] 80 mg PO HS #30 tab 03/15/17 Clopidogrel Bisulfate [Clopidogrel] 75 mg PO DAILY #30 tab 03/15/17 Verapamil HCl [Verapamil Sr] 120 mg PO DAILY #30 cap 03/15/17 Abnormal Lab Results 07/18/18 07/18/18 07/18/18 19:10 19:10 19:16 Monocytes % 10.8 H Random Glucose 71 L Creatine Kinase Index 6.4 H* CK-MB (CK-2) 10.6 H Troponin I 0.70 H* B-Natriuretic Peptide 1858.7 H Ur Specific [place] Ur Leukocyte Esterase 07/18/18 19:40 Monocytes % Random Glucose Creatine Kinase Index CK-MB (CK-2) Troponin I B-Natriuretic Peptide Ur Specific [place] 1.003 L Ur Leukocyte Esterase 2+ H D ASSESSMENT AND PLAN: 1. Ventricular tachycardia with AICD shocks - Patient has no chest pain or SOB now. Initial troponin was 0.70 and EKG shows NSR with ectopics and no ischemic ST-T wave changes. Cardiology consulted and patient is getting IV amiodarone. Patient is counseled about compliance with her medications. AICD will be interrogated. Has features of UTI but no symptoms. Will treat with Macrobid and send urine for culture. 2. Tobacco Use We will provide patient all the necessary assistance to facilitate smoking cessation and prescribe Nicotine patch. Will consult nephrology and avoid nephrotoxic agents such as NSAIDS, aminoglycosides, contrast dyes and certain Alternative medicine products. 3. Alcohol abuse - Implement [facility] alcohol withdrawal protocol, fall and aspiration precautions. Treat with thiamine and folic acid and monitor electrolytes (Ca,Mg,K,P). Carpenter Prototype patient about abstaining from alcohol and refer to alcohol detox upon discharge. 4. DVT prophylaxis - Lovenox 40 mg SQ q 24 hours. 5. Advance directives - Full code
[2018-07-18] MEDS ORDERED: AMIODARONE IN DEXTROSE,ISO-OSM 360 MG/200 ML BAG IVPB SCH (22:30)
--- NOTE | 2018-07-18 23:57 | HP ---
CHIEF COMPLAINT: AICD shock PCP: Dr. Jeronimo HISTORY OF PRESENT ILLNESS: 58 yo female with PMH Hypertrophic cardiomyopathy (s/p AICD placement), HTN, HLD , CAD (pt was told previously she likely needed stenting but has not followed up ), admitted following an episode of SOB, chest pressure and multiple AICD shocks. She states that she regularly has SOB and chest pain on exertion as frequently as every day, though never as severe as today. She states she is usually able to rest and feel better. Today she was out walking the dog. She returned inside and said she felt a shock prior to sitting down. Her daughter was present, helped her sit down and called for an ambulance. She states she was shocked a total of 3 times in the span of a couple minutes. Of note she states she has not taken any of her medications in over a year, though she is prescribed atenolol, verapamil, plavix, and lipitor. She also endorses daily alcohol use of about 12 beers with multiple past detox admissions. Her last drink was today prior to the episode that brought her into the hospital. She denies any history of withdrawal seizures. She currently denies any symptoms and states that she feels better. She denies any fevers, chills, n/v/d, abdominal pain, dysuria, or hematuria. ER course was notable for: (1) AICD interrogation: Persistent Vtach with total of 9 shocks today, regular rate and rythm upon arrival, Multiple NSVTs 5-6 beats noted on tele monitor (2) Cardiology consulted: Amiodarone drip (3) Trop 0.07 Recent Travel: none PAST MEDICAL HISTORY: Hypertrophic cardiomyopathy (s/p AICD placement), HTN, HLD, CAD (pt was told previously she likely needed stenting but has not followed up) PAST SURGICAL HISTORY: AICD placement Social History: Smokin-6 cigarettes a day, down from 1 ppd Alcohol: 12 beers daily Drugs: Denies Family History: Allergies metoprolol Allergy (Severe, Verified 07/18/18 18:14) Itching HOME MEDICATIONS: Home Medications Medication Instructions Recorded Atenolol [Tenormin -] 25 mg PO DAILY 07/13/16 Aspirin [ASA -] 81 mg PO DAILY #30 tab 03/15/17 Atorvastatin Ca [Lipitor] 80 mg PO HS #30 tab 03/15/17 Clopidogrel Bisulfate [Clopidogrel] 75 mg PO DAILY #30 tab 03/15/17 Verapamil HCl [Verapamil Sr] 120 mg PO DAILY #30 cap 03/15/17 REVIEW OF SYSTEMS CONSTITUTIONAL: Absent: fever, chills, diaphoresis, generalized weakness, malaise, loss of appetite, weight change HEENT: Absent: rhinorrhea, nasal congestion, throat pain, throat swelling, difficulty swallowing, mouth swelling, ear pain, eye pain, visual changes CARDIOVASCULAR: chest pain Absent: , syncope, palpitations, irregular heart rate, lightheadedness, peripheral edema RESPIRATORY: shortness of breath, dyspnea with exertion, Absent: cough, orthopnea, wheezing, stridor, hemoptysis GASTROINTESTINAL: Absent: abdominal pain, abdominal distension, nausea, vomiting, diarrhea, constipation, melena, hematochezia GENITOURINARY: Absent: dysuria, frequency, urgency, hesitancy, hematuria, flank pain, genital pain MUSCULOSKELETAL: Absent: myalgia, arthralgia, joint swelling, back pain, neck pain SKIN: Absent: rash, itching, pallor HEMATOLOGIC/IMMUNOLOGIC: Absent: easy bleeding, easy bruising, lymphadenopathy, frequent infections ENDOCRINE: Absent: unexplained weight gain, unexplained weight loss, heat intolerance, cold intolerance NEUROLOGIC: Absent: headache, focal weakness or paresthesias, dizziness, unsteady gait, seizure, mental status changes, bladder or bowel incontinence PSYCHIATRIC: Absent: anxiety, depression, suicidal or homicidal ideation, hallucinations. PHYSICAL EXAMINATION Vital Signs - 24 hr 07/18/18 07/18/18 07/18/18 18:04 18:30 19:05 Temperature 98.0 F Pulse Rate 98 H Pulse Rate [ 101 H 102 H Apical] Respiratory 16 20 20 Rate Blood Pressure 160/99 Blood Pressure 145/109 H [Left Arm] Blood Pressure 187/93 H [Right Arm] O2 Sat by Pulse 100 99 100 Oximetry (%) 07/18/18 07/18/18 19:07 20:39 Temperature Pulse Rate Pulse Rate [ 82 Apical] Respiratory 20 Rate Blood Pressure Blood Pressure 134/94 [Left Arm] Blood Pressure [Right Arm] O2 Sat by Pulse 99 100 Oximetry (%) GENERAL: A&O, no acute distress HEAD: Normocephalic, atraumatic. EYES: PERRL, no scleral icterus EARS, NOSE, THROAT: oropharynx clear without exudates. Moist mucous membranes. NECK: supple without lymphadenopathy LUNGS: CTA b/l, no crackles or wheezes HEART: Regular rate and rhythm, normal S1 and S2 without murmur ABDOMEN: Soft, nontender to palpation, normoactive bowel sounds MUSCULOSKELETAL: No bony deformities or tenderness. EXTREMITIES: 2+ pulses, warm, well-perfused. No peripheral edema. NEUROLOGICAL: Cranial nerves II-XII grossly intact. Normal speech. PSYCHIATRIC: Cooperative. Good eye contact. Appropriate mood and affect. Laboratory Results - last 24 hr 07/18/18 07/18/18 07/18/18 19:10 19:10 19:10 WBC 6.5 RBC 4.38 Hgb 14.4 Hct 40.9 MCV 93.5 MCH 32.9 MCHC 35.2 RDW 14.1 Plt Count 243 MPV 9.1 Absolute Neuts (auto) 4.2 Neutrophils % 64.0 D Lymphocytes % 23.0 D Monocytes % 10.8 H Eosinophils % 0.7 Basophils % 1.5 Nucleated RBC % 0 PT with INR INR Sodium 139 Potassium 4.4 Chloride 103 Carbon Dioxide 25 Anion Gap 11 BUN 12 Creatinine 0.8 Creat Clearance w eGFR > 60 Random Glucose 71 L Calcium 9.1 Phosphorus 3.6 Magnesium 2.1 Total Bilirubin 0.7 AST 26 ALT 24 Alkaline Phosphatase 79 Creatine Kinase 165 Cancelled Creatine Kinase Index 6.4 H* CK-MB (CK-2) 10.6 H Troponin I 0.70 H* Cancelled B-Natriuretic Peptide Total Protein 7.4 Albumin 3.9 Urine Color Urine Appearance Urine pH Ur Specific [place] Urine Protein Urine Glucose (UA) Urine Ketones Urine Blood Urine Nitrite Urine Bilirubin Urine Urobilinogen Ur Leukocyte Esterase Urine WBC (Auto) Urine RBC (Auto) Ur Epithelial Cells 07/18/18 07/18/18 07/18/18 19:10 19:16 19:40 WBC RBC Hgb Hct MCV MCH MCHC RDW Plt Count MPV Absolute Neuts (auto) Neutrophils % Lymphocytes % Monocytes % Eosinophils % Basophils % Nucleated RBC % PT with INR 11.30 INR 0.96 Sodium Potassium Chloride Carbon Dioxide Anion Gap BUN Creatinine Creat Clearance w eGFR Random Glucose Calcium Phosphorus Magnesium Total Bilirubin AST ALT Alkaline Phosphatase Creatine Kinase Creatine Kinase Index CK-MB (CK-2) Troponin I B-Natriuretic Peptide 1858.7 H Total Protein Albumin Urine Color Straw Urine Appearance Clear Urine pH 6.0 Ur Specific [place] 1.003 L Urine Protein Negative Urine Glucose (UA) Negative Urine Ketones Negative Urine Blood Negative Urine Nitrite Negative Urine Bilirubin Negative Urine Urobilinogen Negative Ur Leukocyte Esterase 2+ H D Urine WBC (Auto) 15 Urine RBC (Auto) 2 Ur Epithelial Cells Rare ASSESSMENT/PLAN: 58 yo female with PMH Hypertrophic cardiomyopathy (s/p AICD placement), HTN, HLD , CAD, admitted following an episode of SOB, chest pressure and multiple AICD shocks. Hypertrophic Cardiomyopathy s/p AICD defribrillation for VTach -AICD interrogation: Persistent Vtach with total of 9 shocks today -Regular rate and rythm upon arrival, Multiple NSVTs 5-6 beats noted on tele monitor -Cardiology Consulted, Amio drip -Pt received 1 gm Mg in ED -Monitor and replete lytes as needed -Troponin 0.07, EKG noted, Troponin likely due to AICD defibrillations -Trend troponin and repeat EKG pending -Telemetry monitoring Alcohol Abuse -Reports about 12 beers a day -Multiple detox admissions previously at [facility] -Pt states she was feeling anxious earlier in ED, given librium -CIWA currently 0 following librium dose -Will monitor for signs of withdrawal and initiate librium protocol as needed -Thiamine and Folic acid Asymptomatic Pyuria -UA with 2+ LE and 15 WBCs -Denies any dysuria, hematuria, frequency, suprapubic pain -Afebrile, Serum WBC 6.5 -Will start treatment as possible UTI could have been exacerbating factor HTN -hold home meds for now pending cardiology evaluation and recommendations HLD -Lipitor 80 mg PO HS CAD -Pt has been told she needs stents previously, though 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 - New Patient This patient is new to me today: Yes Date on this admission: 07/19/18 - Critical Care Critical Care patient: No
[2018-07-19] MEDS: NITROFURANTOIN MACROCRYSTAL 50 MG CAPSULE (FP) PO SCH ×4 (00:55→18:08)
[2018-07-19] MEDS ORDERED: NITROFURANTOIN MACROCRYSTAL 50 MG CAPSULE (FP) ONE ×3 (04:26→12:45)
[2018-07-19] MEDS ORDERED: AMIODARONE IN DEXTROSE,ISO-OSM 360 MG/200 ML BAG IVPB SCH (05:00)
[2018-07-19 06:54] LABS: BASO % 0.7 % (0-2.0); EOS % 1.3 % (0-4.5); HEMATOCRIT 41.7 % (32.4-45.2); HEMOGLOBIN 14.6 GM/dL (10.7-15.3); LYMPH % 25.9 % (8-40); MCH 32.8 pg (25.7-33.7); MEAN CELL VOLUME 93.7 fl (80-96); MEAN PLT VOLUME 8.9 fl (7.5-11.1); MONO % 8.9 % (3.8-10.2); NEUT % 63.2 % (42.8-82.8); PLATELET COUNT 229 K/MM3 (134-434); RBC 4.45 M/mm3 (3.60-5.2); RDW 13.8 % (11.6-15.6); WHITE BLOOD COUNT 6.4 K/mm3 (4.0-10.0)
[2018-07-19 07:24] LABS: ALBUMIN 3.5 g/dl (3.4-5.0); ALK PHOS 73 U/L (45-117); ANION GAP 8 MMOL/L (8-16); BILIRUBIN,TOTAL 0.5 mg/dL (0.2-1); BLOOD UREA NITROGEN 17 mg/dL (7-18); CALCIUM 8.7 mg/dL (8.5-10.1); CHLORIDE 105 mmol/L (98-107); CO2 25 mmol/L (21-32); GLUCOSE,RANDOM 97 mg/dL (74-106); MAGNESIUM 2.4 mg/dL (1.8-2.4); PHOSPHOROUS 4.2 mg/dL (2.5-4.9); POTASSIUM 4.6 mmol/L (3.5-5.1); SGOT/AST 39 U/L (15-37); SGPT/ALT 24 U/L (13-61); SODIUM 138 mmol/L (136-145); TOT PROT 6.9 g/dl (6.4-8.2)
[2018-07-19] MEDS ORDERED: ATENOLOL 25 MG TABLET (FP) ONE (08:42)
[2018-07-19] MEDS ORDERED: HEPARIN NA (PORCINE) 5,000 UNITS/ML 1ML VIAL IVPUSH PRN ×2 (09:12)
--- NOTE | 2018-07-19 09:17 | CON.CARD ---
Cardiology Consult (text) - Consultation Consultation Note: Consult Dictated IMP: History of hypertrophic CM s/p ICD ?Hx CAD Multiple ICD shocks, ER interrogation showed episodes VT +TnI Hx ETOH abuse Medication non-adherence REC: 1. Can d/c amio gtts and resume home meds: Verapamil and Atenolol. 2. Start Heparin gtts while trending cardiac enzymes 3. Echo 4. Tele 5. Keep K+ and Mg2+ repleted. 6. Will obtain/review old records: will need repeat ischemic eval prior to discharge 7. Watch for ETOH withdrawal
[2018-07-19] MEDS ORDERED: HEPARIN INFUSION - 25,000 UNITS/500 ML INFUS.BAG IVPB ONE (09:36)
[2018-07-19] MEDS ORDERED: FOLIC ACID 1 MG TABLET (FP) ONE (09:44)
[2018-07-19] MEDS: FOLIC ACID 1 MG TABLET (FP) PO SCH (09:45)
[2018-07-19] MEDS: HEPARIN - 25,000 UNIT in SODIUM CHLORIDE 495 ML IV SCH ×2 (09:45→21:32)
[2018-07-19] MEDS: ATENOLOL 25 MG TABLET (FP) PO SCH (09:45)
[2018-07-19] MEDS: VERAPAMIL HCL 120 MG TABLET PO SCH ×2 (09:47→21:31)
[2018-07-19] MEDS: THIAMINE HCL 100 MG TABLET (FP) PO SCH (09:47)
--- NOTE | 2018-07-19 09:59 | CONS ---
DATE OF CONSULTATION: 07/19/[address] Carrillo. HISTORY OF PRESENT ILLNESS: The patient is a 58-year-old female admitted to the cardiac unit after her ICD discharged multiple times yesterday. Her past medical history is significant for hypertrophic cardiomyopathy diagnosed around 2009, status post ICD for nonsustained VT and syncope in 2015 at [facility]. She presents to the ER with multiple episodes of ICD discharges, she describes about 8 episodes which began yesterday. She has chronic dyspnea and chronic exertional chest discomfort and has been off of her atenolol and verapamil for 2 months. She is also an alcoholic and drinks approximately 8 beers per day. Patient also reports a history of possible coronary artery disease on cardiac catheterization several years ago and reports that she needed stents but "never got them." Her electrolytes were normal, troponin is mildly elevated and she was started on IV amiodarone bolus and then drip for control of VT. An interrogation of her device was performed by the emergency department physician with the physician relations representative for her [email or web address] device and ER reported multiple episodes of VT for which she was given appropriate shocks. I searched for those strips of interrogation in the ER and they are currently unavailable for review. The patient is currently chest pain free and has not had any further shocks overnight. She currently denies chest pain or shortness of breath. PAST MEDICAL HISTORY: As outlined above. ALLERGIES: She has adverse previous reactions to METOPROLOL. HOME MEDICATIONS: Included verapamil 120 mg p.o. b.i.d.; clopidogrel 75 mg p.o. daily; atorvastatin 80 mg p.o. at bedtime; atenolol 25 mg p.o. daily; aspirin 81 mg p.o. daily. FAMILY HISTORY: Negative for sudden cardiac or other relatives with hypertrophic cardiomyopathy. SOCIAL HISTORY: She smokes cigarettes, approximately half pack per day. Drinks about 8 or 9 beers per day. She has previously been in detox. She denies illegal drug use. PHYSICAL EXAMINATION: HEENT: Anicteric. Vital Signs: Afebrile, temperature 98.5, pulse 79, blood pressure ranging between 102 and 110 over 60 to 90, O2 saturation is 99 on room air. Neck: No bruits. No JVD. Heart: S1, 2 regular. There is a systolic murmur audible at the apex which increases with hand lead generation representative. Chest: Clear. Abdomen: Soft, nontender. Extremities: No edema. IMAGING: Her chest x-ray showed cardiomegaly with no acute disease. LABORATORIES: White count 6.4, hematocrit 41.7, platelets 229. INR 0.96. Sodium 138, potassium 4.6, creatinine is normal. LFTs were normal. CK 165. Initial troponin 0.7, increased to 1.62, then 1.59. BNP was 1858. Her ECGs showed normal sinus rhythm at 96 beats per minute with left ventricular hypertrophy, nonspecific intraventricular conduction delay and T-wave inversions in I, aVL with early repolarization/J-point elevation in the lateral leads. IMPRESSION: 1. History of hypertrophic cardiomyopathy, status post implantable cardioverter-defibrillator. 2. Possible history of coronary artery disease, poor historian. 3. Multiple implantable cardioverter-defibrillator shocks, upon emergency room interrogation consistent with ventricular tachycardia - strips currently not available for review. 4. Positive troponin. 5. History of alcohol abuse. 6. Medication nonadherence. RECOMMENDATIONS: 1. Discontinue amiodarone drip. Her shocks were delivered for VT presumably due to noncompliance with her usual medications, verapamil and atenolol. Amiodarone is not a good long-term choice for this patient who drinks heavily who may have some component of liver disease. Will initiate verapamil 120 mg b.i.d. and her usual home dose of atenolol 25 mg daily. 2. The positive troponin level is probably due to the arrhythmia with multiple shocks; however, acute coronary syndrome cannot be completely excluded. Will start heparin drip while trending cardiac enzymes and continue Plavix. 3. Echocardiogram. 4. Telemetry. 5. Keep potassium and magnesium repleted. 6. Will obtain old records, will need a repeat ischemic evaluation prior to discharge. 7. Watch carefully for alcohol withdrawal. Cheyenne [id number]
[2018-07-19] MEDS ORDERED: ENOXAPARIN NA (PORCINE) 40 MG/0.4 ML DISP.SYRIN SQ SCH (10:00)
[2018-07-19] MEDS ORDERED: CLOPIDOGREL BISULFATE 75 MG TABLET (FP) ONE (10:02)
[2018-07-19] MEDS: CLOPIDOGREL BISULFATE 75 MG TABLET (FP) PO SCH (10:03)
--- NOTE | 2018-07-19 14:28 | PN ---
Physical Exam: SUBJECTIVE: Patient seen and examined at bedside. No current complaints. No firing of AICD. Denies CP,MAGAÑA,SOB, abdominal pain, nausea or vomiting. OBJECTIVE: Vital Signs Period Temp Pulse Resp BP Sys/Jennings Pulse Ox Last 24 Hr 98.0 F-98.5 F 74-110 16-20 102-187/68-109 99-100 GENERAL: The patient is awake, alert, and fully oriented, in no acute distress. HEAD: Normal with no signs of trauma. EYES: PERRL, extraocular movements intact, sclera anicteric, conjunctiva clear. No ptosis. ENT: Ears normal, nares patent, oropharynx clear without exudates, moist mucous membranes. NECK: Trachea midline, full range of motion, supple. LUNGS: Breath sounds equal, clear to auscultation bilaterally, no wheezes, no crackles, no accessory muscle use. HEART: Regular rate and rhythm, S1, S2 without murmur, rub or gallop. ABDOMEN: Soft, nontender, nondistended, normoactive bowel sounds, no guarding, no rebound, no hepatosplenomegaly, no masses. EXTREMITIES: 2+ pulses, warm, well-perfused, no edema. NEUROLOGICAL: Cranial nerves II through XII grossly intact. Normal speech, gait not observed. PSYCH: Normal mood, normal affect. SKIN: Warm, dry, normal turgor, no rashes or lesions noted Laboratory Results - last 24 hr 07/18/18 07/18/18 07/18/18 19:10 19:10 19:10 WBC 6.5 RBC 4.38 Hgb 14.4 Hct 40.9 MCV 93.5 MCH 32.9 MCHC 35.2 RDW 14.1 Plt Count 243 MPV 9.1 Absolute Neuts (auto) 4.2 Neutrophils % 64.0 D Lymphocytes % 23.0 D Monocytes % 10.8 H Eosinophils % 0.7 Basophils % 1.5 Nucleated RBC % 0 PT with INR INR Sodium 139 Potassium 4.4 Chloride 103 Carbon Dioxide 25 Anion Gap 11 BUN 12 Creatinine 0.8 Creat Clearance w eGFR > 60 Random Glucose 71 L Calcium 9.1 Phosphorus 3.6 Magnesium 2.1 Total Bilirubin 0.7 AST 26 ALT 24 Alkaline Phosphatase 79 Creatine Kinase 165 Cancelled Creatine Kinase Index 6.4 H* CK-MB (CK-2) 10.6 H Troponin I 0.70 H* Cancelled B-Natriuretic Peptide Total Protein 7.4 Albumin 3.9 Urine Color Urine Appearance Urine pH Ur Specific Deaver Urine Protein Urine Glucose (UA) Urine Ketones Urine Blood Urine Nitrite Urine Bilirubin Urine Urobilinogen Ur Leukocyte Esterase Urine WBC (Auto) Urine RBC (Auto) Ur Epithelial Cells 07/18/18 07/18/18 07/18/18 19:10 19:16 19:40 WBC RBC Hgb Hct MCV MCH MCHC RDW Plt Count MPV Absolute Neuts (auto) Neutrophils % Lymphocytes % Monocytes % Eosinophils % Basophils % Nucleated RBC % PT with INR 11.30 INR 0.96 Sodium Potassium Chloride Carbon Dioxide Anion Gap BUN Creatinine Creat Clearance w eGFR Random Glucose Calcium Phosphorus Magnesium Total Bilirubin AST ALT Alkaline Phosphatase Creatine Kinase Creatine Kinase Index CK-MB (CK-2) Troponin I B-Natriuretic Peptide 1858.7 H Total Protein Albumin Urine Color Straw Urine Appearance Clear Urine pH 6.0 Ur Specific Deaver 1.003 L Urine Protein Negative Urine Glucose (UA) Negative Urine Ketones Negative Urine Blood Negative Urine Nitrite Negative Urine Bilirubin Negative Urine Urobilinogen Negative Ur Leukocyte Esterase 2+ H D Urine WBC (Auto) 15 Urine RBC (Auto) 2 Ur Epithelial Cells Rare 07/19/18 07/19/18 07/19/18 06:40 06:40 06:40 WBC 6.4 RBC 4.45 Hgb 14.6 Hct 41.7 MCV 93.7 MCH 32.8 MCHC 35.0 RDW 13.8 Plt Count 229 MPV 8.9 Absolute Neuts (auto) 4.1 Neutrophils % 63.2 Lymphocytes % 25.9 Monocytes % 8.9 Eosinophils % 1.3 D Basophils % 0.7 Nucleated RBC % 0 PT with INR INR Sodium 138 Potassium 4.6 Chloride 105 Carbon Dioxide 25 Anion Gap 8 BUN 17 Creatinine 1.0 Creat Clearance w eGFR 56.56 Random Glucose 97 Calcium 8.7 Phosphorus 4.2 Magnesium 2.4 Total Bilirubin 0.5 AST 39 H ALT 24 Alkaline Phosphatase 73 Creatine Kinase Creatine Kinase Index CK-MB (CK-2) Troponin I 1.62 H* 1.59 H* B-Natriuretic Peptide Total Protein 6.9 Albumin 3.5 Urine Color Urine Appearance Urine pH Ur Specific Deaver Urine Protein Urine Glucose (UA) Urine Ketones Urine Blood Urine Nitrite Urine Bilirubin Urine Urobilinogen Ur Leukocyte Esterase Urine WBC (Auto) Urine RBC (Auto) Ur Epithelial Cells Active Medications Generic Name Dose Route Start Last Admin Trade Name Freq PRN Reason Stop Dose Admin Atenolol 25 mg 07/19/18 10:00 07/19/18 09:45 Tenormin - PO 25 mg DAILY YADY Administration Atorvastatin Calcium 80 mg 07/19/18 22:00 Lipitor - PO HS YADY Clopidogrel Bisulfate 75 mg 07/19/18 10:00 07/19/18 10:03 Plavix - PO 75 mg DAILY YADY Administration Folic Acid 1 mg 07/19/18 10:00 07/19/18 09:45 Folic Acid - PO 1 mg DAILY YADY Administration Heparin Sodium (Porcine) 1,000 unit 07/19/18 09:12 Heparin - IVPUSH PRN PRN Heparin Heparin Sodium (Porcine) 5,000 unit 07/19/18 09:12 Heparin - IVPUSH PRN PRN Heparin Heparin Sodium (Porcine) 25, 500 mls @ 20 mls/hr 07/19/18 09:15 07/19/18 09: 45 000 unit/ Sodium Chloride IV 1,000 unit/hr TITR YADY 20 mls/hr Administration Protocol 1,000 UNIT/HR Nitrofurantoin Macrocrystals 50 mg 07/19/18 00:30 07/19/18 12:50 Macrodantin - PO 50 mg Q6HPO YADY Administration Thiamine HCl 100 mg 07/19/18 10:00 07/19/18 09:47 Vitamin B1 - PO 100 mg DAILY YADY Administration Verapamil HCl 120 mg 07/19/18 10:00 07/19/18 09:47 Verapamil Hcl PO 120 mg BID YAYD Administration ASSESSMENT/PLAN: Problem List - Problems (1) AICD discharge Assessment/Plan: s/p 8 shocks. all appropriate. * has not been compliant with medications. * will restart home medications. * cardiac monitoring for recurrent vtach (2) Elevated troponin Assessment/Plan: most likely due to shocks however can not r/o new ischemia * Trop peaked at 1.59. * on hep ggt. * will need ischemia eval. * cardio on board (3) HOCM (hypertrophic obstructive cardiomyopathy) (4) Depression (5) HTN (hypertension) Assessment/Plan: continue Verapamil and Atenolol. (6) Alcohol use disorder Assessment/Plan: CIWA 0. * received librium in the ER 1x dose. * will give banana bag. * monitor for signs of withdrawal. * start librium if CIWA >5. * counseled on avoidance of substances. * not interested in rehab at this time Visit type - Emergency Visit Emergency Visit: Yes ED Registration Date: 07/18/18 Care time: The patient presented to the Emergency Department on the above date and was hospitalized for further evaluation of their emergent condition. - New Patient This patient is new to me today: Yes Date on this admission: 07/23/18 - Critical Care Critical Care patient: No
[2018-07-19 16:54] VITALS: BMI 26.2
[2018-07-19] MEDS ORDERED: FOLIC ACID INJECTION - 1 MG, THIAMINE HCL 100 MG, MULTIVIT INJECTION ADULT 10 ML in SOD... IVPB ONE (17:39)
--- NOTE | 2018-07-19 17:39 | PN ---
Teaching Attending Note Name of Resident: Jony Stein ATTENDING PHYSICIAN STATEMENT I saw and evaluated the patient. I reviewed the resident's note and discussed the case with the resident. I agree with the resident's findings and plan as documented. SUBJECTIVE:states she has some chest soreness now but no CP or palpitations. states she only experienced 3 of the shocks. just prior to that she was walking the dog and feeling some SOB and palpitations but contributed it to her being out in the cold walking. states she has not taken her meds for the past 2 months. has not seen her computer forensics investigator in over a year and that was the last time she had her ACID interrogated. also admits to heavy drinking and tobacco use over the past year. never had withdrawals she said just felt crappy which would go away when she consumed ETOH. denies Cp, SOB, fever, chills, N/V/C/D, MAGAÑA, blurred vision, auditory/visual hallucinations OBJECTIVE: Last Vital Signs Temp Pulse Resp BP Pulse Ox 98.6 F 73 18 122/76 100 07/19/18 16:27 07/19/18 16:27 07/19/18 16:27 07/19/18 16:27 07/19/18 15:03 General NAD CV S1 S2 RRR no murmur/rub/gallop +chest wall tenderness Lungs CTA B/L no wheezing/rales/rhonchi Extremities no tremors ASSESSMENT AND PLAN: 58yo F with PMH HCM, Vtach s/p AICD, HTN and continuous polysubstance dependence presented to the ER after receiving multiple AICD shocks. AICD was interrogated and found to have Vtach with 8 shocks 1. Vtach-s/p 8 shocks. all appropriate. has not been compliaant with medications. will restart home medications. cardiac monitoring for recurrent vtach 2. Tropinemia- most likely due to shocks however can not r/o new ischemia as patient has been non compliant with multiple risk factors. Trop peaked at 1.59. on hep ggt. will need ischemia eval. cardio on board 3. UTI- asymptomatic. started on macrobid. f/u cx if negative would stop abx 4. Continuous polysubstance dependence (ETOH and nicotine)- CIWA 0. received librium in the ER 1x dose. will give banana bag. monitor for signs of withdrawal. start librium if CIWA >5. refused nicotine patch. counseled on avoidance of substances. not interested in rehab at this time 5. HTN- controlled. cont medication 6. DVT ppx- hep ggt 7. d/w patient in detail on importance of compliance and follow up. how use of ETOH and nicotine increases her risk for cardiac disease. daughter present at bedside. verbalized understanding and agreement iwth plan
[2018-07-19] MEDS ORDERED: ATORVASTATIN CA 80 MG TABLET (FP) PO SCH (22:00)
[2018-07-20] MEDS: NITROFURANTOIN MACROCRYSTAL 50 MG CAPSULE (FP) PO SCH ×3 (01:05→11:45)
[2018-07-20 02:07] VITALS: TEMP 98.1
[2018-07-20 06:33] VITALS: BP 145/77; PULSE 69
--- NOTE | 2018-07-20 08:22 | PN ---
Progress Note, Physician Chief Complaint: no further ICD shocks TELE: NSR, rare PVCs - Current Medication List Current Medications: Active Medications Atenolol (Tenormin -) 25 mg PO DAILY [facility] Last Admin: 07/19/18 09:45 Dose: 25 mg Atorvastatin Calcium (Lipitor -) 80 mg PO HS [facility] Last Admin: 07/19/18 21:31 Dose: 80 mg Clopidogrel Bisulfate (Plavix -) 75 mg PO DAILY [facility] Last Admin: 07/19/18 10:03 Dose: 75 mg Folic Acid (Folic Acid -) 1 mg PO DAILY [facility] Last Admin: 07/19/18 09:45 Dose: 1 mg Heparin Sodium (Porcine) (Heparin -) 1,000 unit IVPUSH PRN PRN PRN Reason: Heparin Last Admin: 07/19/18 21:31 Dose: 1,000 unit Heparin Sodium (Porcine) (Heparin -) 5,000 unit IVPUSH PRN PRN PRN Reason: Heparin Heparin Sodium (Porcine) 25, (000 unit/ Sodium Chloride) 500 mls @ 20 mls/hr IV TITR [facility]; Protocol Last Admin: 07/19/18 21:32 Dose: 1,100 unit/hr, 22 mls/hr Nitrofurantoin Macrocrystals (Macrodantin -) 50 mg PO Q6HPO [facility] Last Admin: 07/20/18 06:21 Dose: 50 mg Thiamine HCl (Vitamin B1 -) 100 mg PO DAILY [facility] Last Admin: 07/19/18 09:47 Dose: 100 mg Verapamil HCl (Verapamil Hcl) 120 mg PO BID [facility] Last Admin: 07/19/18 21:31 Dose: 120 mg - Objective Vital Signs: Vital Signs Temperature 98.1 F 07/20/18 06:00 Pulse Rate 69 07/20/18 06:00 Respiratory Rate 18 07/20/18 06:00 Blood Pressure 145/77 07/20/18 06:00 O2 Sat by Pulse Oximetry (%) 100 07/19/18 21:00 Constitutional: Yes: No Distress, Calm Cardiovascular: Yes: Regular Rate and Rhythm Respiratory: Yes: CTA Bilaterally Gastrointestinal: Yes: Soft Edema: No Neurological: Yes: Alert, Oriented ...Motor Strength: WNL Labs: CBC, BMP 07/19/18 06:40 07/19/18 06:40 INR, PTT INR 0.96 (0.83-1.09) 07/18/18 19:10 Laboratory Tests 07/19/18 07/19/18 07/19/18 06:40 06:40 15:30 PTT (Actin FS) Sodium 138 Potassium 4.6 BUN 17 Creatinine 1.0 Troponin I 1.62 H* 1.59 H* 0.72 H* 07/19/18 20:00 PTT (Actin FS) 42.5 H Sodium Potassium BUN Creatinine Troponin I - ....Imaging EKG: Image Reviewed Assessment/Plan IMP: History of hypertrophic CM s/p ICD ?Hx CAD Multiple ICD shocks, ER interrogation showed episodes VT +TnI Hx ETOH abuse Medication non-adherence REC: 1. Continue Verapamil and Atenolol. 2. Cont Heparin gtts while trending cardiac enzymes 3. Echo 4. Tele 5. Keep K+ and Mg2+ repleted. 6. Will obtain/review old records: will need repeat ischemic eval prior to discharge 7. Watch for ETOH withdrawal
[2018-07-20 08:48] LABS: BASO % 0.8 % (0-2.0); EOS % 1.8 % (0-4.5); HEMATOCRIT 42.6 % (32.4-45.2); LYMPH % 30.3 % (8-40); MCH 31.3 pg (25.7-33.7); MCHC 32.9 g/dl (32.0-36.0); MEAN CELL VOLUME 94.9 fl (80-96); MEAN PLT VOLUME 9.2 fl (7.5-11.1); NEUT % 57.1 % (42.8-82.8); PLATELET COUNT 196 K/MM3 (134-434); RBC 4.49 M/mm3 (3.60-5.2); RDW 13.5 % (11.6-15.6); WHITE BLOOD COUNT 7.9 K/mm3 (4.0-10.0)
[2018-07-20] MEDS ORDERED: PT OWN MED DRAWER 7, Y5N ONE (09:09)
[2018-07-20] MEDS: THIAMINE HCL 100 MG TABLET (FP) PO SCH (10:00)
[2018-07-20] MEDS: FOLIC ACID 1 MG TABLET (FP) PO SCH (10:00)
[2018-07-20] MEDS: VERAPAMIL HCL 120 MG TABLET PO SCH (10:00)
[2018-07-20] MEDS: CLOPIDOGREL BISULFATE 75 MG TABLET (FP) PO SCH (10:00)
[2018-07-20] MEDS: ATENOLOL 25 MG TABLET (FP) PO SCH (10:00)
--- NOTE | 2018-07-20 10:10 | EKG ---
Test Reason : Blood Pressure : / mmHG Vent. Rate : 096 BPM Atrial Rate : 096 BPM P-R Int : 144 ms QRS Dur : 098 ms QT Int : 400 ms P-R-T Axes : 055 -01 118 degrees QTc Int : 505 ms NORMAL SINUS RHYTHM BIATRIAL ENLARGEMENT LEFT VENTRICULAR HYPERTROPHY T WAVE ABNORMALITY, CONSIDER LATERAL ISCHEMIA PROLONGED QT Confirmed by DELMER HARRISON MD ([id number]) on 07/20/2018 10:10:03 AM Referred By: Confirmed By:DELMER HARRISON MD
--- NOTE | 2018-07-20 10:13 | EKG ---
Test Reason : Blood Pressure : / mmHG Vent. Rate : 088 BPM Atrial Rate : 088 BPM P-R Int : 142 ms QRS Dur : 098 ms QT Int : 404 ms P-R-T Axes : -01 054 -40 degrees QTc Int : 488 ms SINUS RHYTHM WITH OCCASIONAL PREMATURE VENTRICULAR COMPLEXES T WAVE ABNORMALITY, CONSIDER INFERIOR ISCHEMIA ABNORMAL ECG Confirmed by DELMER HARRISON MD ([id number]) on 07/20/2018 10:13:22 AM Referred By: Confirmed By:DELMER HARRISON MD
--- NOTE | 2018-07-20 10:15 | EKG ---
Test Reason : Blood Pressure : / mmHG Vent. Rate : 093 BPM Atrial Rate : 093 BPM P-R Int : 138 ms QRS Dur : 096 ms QT Int : 402 ms P-R-T Axes : 058 001 130 degrees QTc Int : 499 ms SINUS RHYTHM WITH OCCASIONAL PREMATURE VENTRICULAR COMPLEXES BIATRIAL ENLARGEMENT LEFT VENTRICULAR HYPERTROPHY T WAVE ABNORMALITY, CONSIDER INFEROLATERAL ISCHEMIA PROLONGED QT ABNORMAL ECG WHEN COMPARED WITH ECG OF 11-MAR-2017 13:17, PREMATURE VENTRICULAR COMPLEXES ARE NOW PRESENT T WAVE INVERSION MORE EVIDENT IN LATERAL LEADS Confirmed by DELMER HARRISON MD ([id number]) on 07/20/2018 10:14:52 AM Referred By: Confirmed By:DELMER HARRISON MD
[2018-07-20 10:23] LABS: ALBUMIN 3.5 g/dl (3.4-5.0); ALK PHOS 71 U/L (45-117); ANION GAP 9 MMOL/L (8-16); BILIRUBIN,TOTAL 0.9 mg/dL (0.2-1); BLOOD UREA NITROGEN 14 mg/dL (7-18); CALCIUM 8.5 mg/dL (8.5-10.1); CHLORIDE 107 mmol/L (98-107); CO2 24 mmol/L (21-32); CREATININE 0.9 mg/dL (0.55-1.3); GLUCOSE,RANDOM 98 mg/dL (74-106); POTASSIUM 4.4 mmol/L (3.5-5.1); SGOT/AST 30 U/L (15-37); SGPT/ALT 23 U/L (13-61); SODIUM 140 mmol/L (136-145); TOT PROT 6.8 g/dl (6.4-8.2)
--- NOTE | 2018-07-20 12:08 | ECHO ---
Name: JESICA BULLARD Exam:Adult Echocardiogram Study Date: 07/20/2018 09:14 AM Age: 58 yrs Reason For Study: HOCOM NSTEMI PACEMAKER DEFIBRILLATOR Height: 5 in Weight: 160 lb BSA: 0.28 m2 MMode/2D Measurements & Calculations IVSd: 1.0 cm Ao root diam: 2.8 cm LVIDd: 5.0 cm LA dimension: 4.0 cm LVIDs: 3.4 cm LVPWd: 1.0 cm EDV(Teich): 120.8 ml ESV(Teich): 47.2 ml Doppler Measurements & Calculations MV E max sanket: 95.8 cm/sec Ao V2 max: 194.1 cm/sec MV A max sanket: 64.7 cm/sec Ao max P.1 mmHg MV E/A: 1.5 AI P1/2t: 301.0 msec MV dec time: 0.16 sec AI max sanket: 425.5 cm/sec LV V1 max P.3 mmHg AI max P.5 mmHg LV V1 max: 90.8 cm/sec AI dec slope: 414.0 cm/sec2 MR max sanket: 417.9 cm/sec TR max sanket: 247.0 cm/sec MR max P.2 mmHg TR max P.9 mmHg Med Peak E' Sankte: 5.6 cm/sec Med E/e': 17.2 Lat Peak E' Sanket: 3.8 cm/sec Lat E/e': 25.0 Left Ventricle There is severe concentric left ventricular hypertrophy. Ejection Fraction = 50-55%. There is apical severe hypokinesis. Right Ventricle There is a pacemaker lead in the right ventricle. The right ventricle is grossly normal size. The rig ht ventricular systolic function is grossly normal. Atria The left atrium is mildly dilated. Mitral Valve There is moderate mitral annular calcification. There is no mitral valve stenosis. There is mild mitr al regurgitation. Tricuspid Valve The tricuspid valve is normal in structure and function. There is mild tricuspid regurgitation. Right ventricular systolic pressure is elevated at 30-40mmHg. Aortic Valve The aortic valve opens well. Moderate aortic regurgitation. Pulmonic Valve The pulmonic valve is not well seen, but is grossly normal. There is no pulmonic valvular stenosis. T here is no pulmonic valvular regurgitation. Great Vessels The aortic root is normal size. Pericardium/Pleura There is no pericardial effusion. Interpretation Summary There is severe concentric left ventricular hypertrophy. Ejection Fraction = 50-55%. There is apical severe hypokinesis. There is a pacemaker lead in the right ventricle. The right ventricular systolic function is grossly normal. The left atrium is mildly dilated. There is moderate mitral annular calcification. There is mild mitral regurgitation. There is mild tricuspid regurgitation. Right ventricular systolic pressure is elevated at 30-40mmHg. Moderate aortic regurgitation. There is no pericardial effusion. MD Jackson *Antione 07/20/2018 12:07 PM
[2018-07-20 12:33] LABS: INR 0.97 (0.83-1.09); PROTHROMBIN TIME (PATIENT) 11.5 SEC (9.7-13.0)
[2018-07-20 12:40] LABS: ACTIVATED PTT 83.8 SECONDS (25.2-36.5)
[2018-07-20] MEDS ORDERED: NICOTINE 14 MG/24 HOURS TOPICAL PATCH TD SCH (13:06)
== END 2018-07-20 12:30 | disposition hospice, home (50) | DRG 309 ==
LOC: JER 18:01 → JERBED 22:31 → J4W 07-19 16:16
PROVIDERS: ADMIT Internal Medicine; ATTEND Internal Medicine
DX: I47.2 Ventricular tachycardia (principal); N39.0 Urinary tract infection, site not specified; F17.210 Nicotine dependence, cigarettes, uncomplicated; F10.10 Alcohol abuse, uncomplicated; I10 Essential (primary) hypertension; E78.5 Hyperlipidemia, unspecified; I25.10 Atherosclerotic heart disease of native coronary artery without angina pectoris; Z95.5 Presence of coronary angioplasty implant and graft; Z95.810 Presence of automatic (implantable) cardiac defibrillator; I45.81 Long QT syndrome; Z91.14 Patient's other noncompliance with medication regimen
CPT/HCPCS: 36415; 71045-TC-FY; 71046-TC-FY; 80053; 81003; 81015; 82550; 82553; 83735; 83880; 84100; 84484; 85025; 85610; 85730; 87086; 93005; 93010; 93306-TC; 99285-25; J0282; J1644; J7030

== ENCOUNTER 2018-08-01 08:39 | Inpatient (IN) | payer OTHER ==
[2018-08-01 08:52] VITALS: BMI 26.2
--- NOTE | 2018-08-01 09:18 | PDOC ---
History of Present Illness - General Chief Complaint: Shortness of Breath Stated Complaint: CHEST PAIN Time Seen by Provider: 08/01/18 09:00 History Source: Patient Exam Limitations: No Limitations - History of Present Illness Initial Comments: 08/01/18 11:48 Patient is a 58-year-old female with past medical history of OHCM (s/p AICD placement), hypertension, hyperlipidemia, coronary artery disease, EtOH disorder , as to the emergency department with 3 days of cough, runny nose and just not feeling well. She states that yesterday she had shortness of breath with walking and some chest pressure. Today they have both since resolved. Patient was recently discharged from the hospital approximately 1 week ago after having an episode with her ICD. Denies fevers, chills, earache, palpitations, edema, nausea, vomiting and diarrhea. Pt is also s/p cardiac stenting approximately one week ago. Past History - Travel Traveled outside of the country in the last 30 days: No Close contact w/someone who was outside of country & ill: No - Past Medical History Allergies/Adverse Reactions: Allergies Allergy/AdvReac Type Severity Reaction Status Date / Time metoprolol Allergy Severe Itching Verified 08/01/18 08:46 Home Medications: Ambulatory Orders Atenolol [Tenormin -] 50 mg PO DAILY 07/13/16 Aspirin [ASA -] 81 mg PO DAILY #30 tab 03/15/17 Atorvastatin Ca [Lipitor] 80 mg PO HS #30 tab 03/15/17 Clopidogrel Bisulfate [Clopidogrel] 75 mg PO DAILY #30 tab 03/15/17 Amiodarone HCl [Cordarone -] 200 mg PO DAILY 08/01/18 Pantoprazole Sodium 40 mg PO DAILY 08/01/18 Anemia: No Asthma: No Cancer: No Cardiac Disorders: Yes (HYPERTROPHIC CARDIOMYOPATHY with Arrythmia) CVA: No COPD: No CHF: No Dementia: No Diabetes: No GI Disorders: No Disorders: No HTN: Yes (on med) Hypercholesterolemia: Yes (on med) Kidney Stones: No Liver Disease: No Seizures: No Thyroid Disease: No - Surgical History Abdominal Surgery: No Appendectomy: No Cardiac Surgery: Yes (S/P AICD/PPM 2015) Cholecystectomy: No Lung Surgery: No Neurologic Surgery: No Orthopedic Surgery: No - Reproductive History PID: No - Suicide/Smoking/Psychosocial Hx Smoking History: Former smoker Have you smoked in the past 12 months: Yes Number of Cigarettes Smoked Daily: 10 Cigars Per Day: 0 Information on smoking cessation initiated: No 'Breaking Loose' booklet given: 03/11/17 Hx Alcohol Use: Yes Drug/Substance Use Hx: No Substance Use Type: Alcohol Hx Substance Use Treatment: Yes (detox [facility] 06/2016, rehab in [facility]) Review of Systems - Review of Systems Able to Perform ROS?: Yes Comments:: 08/01/18 09:17 CONSTITUTIONAL: Absent: fever, chills, diaphoresis, generalized weakness, malaise, loss of appetite HEENT: Present: congestion, rhinorrhea Absent: rhinorrhea, nasal congestion, throat pain, throat swelling, difficulty swallowing, mouth swelling, ear pain, eye pain , visual Changes CARDIOVASCULAR: Present: chest pain Absent: loss of consciousness, palpitations, irregular heart rate, peripheral edema RESPIRATORY: Present: cough, shortness of breath Absent: dyspnea with exertion, orthopnea, wheezing, stridor, hemoptysis GASTROINTESTINAL: Absent: abdominal pain, abdominal distension, nausea, vomiting, diarrhea, constipation, melena, hematochezia GENITOURINARY: Absent: dysuria, frequency, urgency, hesitancy, hematuria, flank pain, genital pain MUSCULOSKELETAL: Absent: myalgia, arthralgia, joint swelling SKIN: Absent: rash, itching, pallor HEMATOLOGIC/IMMUNOLOGIC: Absent: easy bleeding, easy bruising, lymphadenopathy, frequent infections ENDOCRINE: Absent: unexplained weight gain, unexplained weight loss, heat intolerance, cold intolerance NEUROLOGIC: Absent: headache, focal weakness or paresthesias, dizziness, unsteady gait, seizure, mental status changes, bladder or bowel incontinence PSYCHIATRIC: Absent: anxiety, depression, suicidal or homicidal ideation, hallucinations. Is the patient limited [place] proficient: No *Physical Exam - Vital Signs Last Vital Signs Temp Pulse Resp BP Pulse Ox 99.2 F 70 22 H 187/82 H 96 08/01/18 08:46 08/01/18 08:46 08/01/18 08:46 08/01/18 08:46 08/01/18 08:46 - Physical Exam Comments: 08/01/18 09:18 GENERAL: Well developed, well nourished. Awake and alert. No acute distress. HEENT: Normocephalic, atraumatic. PERRLA, EOMI. No conjunctival pallor. Sclera are non- icteric. Moist mucous membranes. Oropharynx is clear. NECK: Supple. Full ROM. No JVD. Carotid pulses 2+ and symmetric, without bruits. No thyromegaly. No lymphadenopathy. CARDIOVASCULAR: Regular rate and rhythm. II/ systolic ejection murmur at the 2-3rd R intercostal space, loudest at the base. No rubs, or gallops. Distal pulses are 2 + and symmetric. PULMONARY: No evidence of respiratory distress. Lungs clear to auscultation bilaterally. No wheezing, rales or rhonchi. ABDOMINAL: Soft. Non-tender. Non-distended. No rebound or guarding. No organomegaly. Normoactive bowel sounds. MUSCULOSKELETAL Normal range of motion at all joints. No bony deformities or tenderness. No CVA tenderness. EXTREMITIES: No cyanosis. No clubbing. No edema. No calf tenderness. SKIN: Warm and dry. Normal capillary refill. No rashes. No jaundice. NEUROLOGICAL: Alert, awake, appropriate. Cranial nerves 2-12 intact. No deficits to light touch and temperature in face, upper extremities and lower extremities. No motor deficits in the in face, upper extremities and lower extremities. Normoreflexic in the upper and lower extremities. Normal speech. Toes are down- going bilaterally. Gait is normal without ataxia. PSYCHIATRIC: Cooperative. Good eye contact. Appropriate mood and affect. Moderate Sedation - Procedure Monitoring Vital Signs: Procedure Monitoring Vital Signs Temperature 99.2 F 08/01/18 08:46 Pulse Rate 70 08/01/18 08:46 Respiratory Rate 22 H 08/01/18 08:46 Blood Pressure 187/82 H 08/01/18 08:46 O2 Sat by Pulse Oximetry (%) 96 08/01/18 08:46 ED Treatment Course - LABORATORY CBC & Chemistry Diagram: 08/01/18 09:48 08/01/18 09:48 Medical Decision Making - Medical Decision Making 08/01/18 14:58 Patient is a 58-year-old female with past medical history of OHCM (s/p AICD placement), hypertension, hyperlipidemia, coronary artery disease, EtOH disorder , as to the emergency department with 3 days of cough, runny nose and just not feeling well. -On exam: Lungs CTAB, heart RRR, with systolic ejection murmur -Labs drawn, No leukocytosis or shift. Electrolytes grossly normal. BNP elevated at 5,000. Previous 2,000 -Two sets of troponins negative at this time -EKG: rate 70BPM, normal axis. QTc 505 (prolonged). Flipped T-waves in I, V5, V6. Abnormal ECG -CXR with RLL consolidation and pleural effusion. -Pneumonia vs CHF. -20 lasix given IV -Given Pt was was discharged from the hospital and with upper respiratory like symptoms. Covered for hospital pneumonia -Dr. Almeida saw at bedside and would pt to be admitted for Mi r/o given history and symptoms -Case discussed with Dr. Marroquin who accepts the patient to tele. *DC/Admit/Observation/Transfer Diagnosis at time of Disposition: Shortness of breath Pneumonia Qualifiers: Pneumonia type: due to unspecified organism Laterality: right Lung location: lower lobe of lung Qualified Code(s): J18.1 - Lobar pneumonia, unspecified organism - Discharge Dispostion Condition at time of disposition: Stable Decision to Admit order: Yes - Referrals - Patient Instructions - Post Discharge Activity
[2018-08-01 10:00] LABS: EOS % 0.8 % (0-4.5); HEMATOCRIT 40.1 % (32.4-45.2); HEMOGLOBIN 13.2 GM/dL (10.7-15.3); LYMPH % 17.4 % (8-40); MEAN CELL VOLUME 93.9 fl (80-96); MEAN PLT VOLUME 9.3 fl (7.5-11.1); MONO % 8.7 % (3.8-10.2); NEUT % 72.1 % (42.8-82.8); PLATELET COUNT 319 K/MM3 (134-434); RBC 4.27 M/mm3 (3.60-5.2); RDW 13.3 % (11.6-15.6); WHITE BLOOD COUNT 8.1 K/mm3 (4.0-10.0)
[2018-08-01 10:14] LABS: INR 1.13 (0.83-1.09); PROTHROMBIN TIME (PATIENT) 13.4 SEC (9.7-13.0)
[2018-08-01 10:51] LABS: ALBUMIN 3.2 g/dl (3.4-5.0); ALK PHOS 104 U/L (45-117); ANION GAP 9 MMOL/L (8-16); BILIRUBIN,TOTAL 0.8 mg/dL (0.2-1); BLOOD UREA NITROGEN 12 mg/dL (7-18); CALCIUM 8.3 mg/dL (8.5-10.1); CHLORIDE 108 mmol/L (98-107); CO2 23 mmol/L (21-32); CREATININE 0.9 mg/dL (0.55-1.3); GLUCOSE,RANDOM 91 mg/dL (74-106); MAGNESIUM 1.8 mg/dL (1.8-2.4); N-TERMINAL BNP 5165.5 pg/ml (5-125); POTASSIUM 4.5 mmol/L (3.5-5.1); SGOT/AST 36 U/L (15-37); SGPT/ALT 81 U/L (13-61); SODIUM 139 mmol/L (136-145); TOT PROT 6.6 g/dl (6.4-8.2)
[2018-08-01] MEDS ORDERED: guaiFENesin 200 MG/10 ML 10 ML UNIT-DOSE CUPS PO ONE (12:26)
[2018-08-01] MEDS ORDERED: ACETAMINOPHEN 325 MG TABLET (FP) PO ONE (12:26)
--- NOTE | 2018-08-01 12:30 | EKG ---
Test Reason : Blood Pressure : / mmHG Vent. Rate : 070 BPM Atrial Rate : 070 BPM P-R Int : 162 ms QRS Dur : 106 ms QT Int : 468 ms P-R-T Axes : 061 022 131 degrees QTc Int : 505 ms NORMAL SINUS RHYTHM LEFT ATRIAL ENLARGEMENT T WAVE ABNORMALITY, CONSIDER LATERAL ISCHEMIA PROLONGED QT ABNORMAL ECG WHEN COMPARED WITH ECG OF 18-JUL-2018 23:56, NO SIGNIFICANT CHANGE WAS FOUND Confirmed by SUAD AWAN, HINA ([id number]) on 08/01/2018 12:29:38 PM Referred By: Confirmed By:HINA BORJAS MD
[2018-08-01] MEDS ORDERED: guaiFENesin 200 MG/10 ML 10 ML UNIT-DOSE CUPS ONE (12:32)
[2018-08-01] MEDS ORDERED: ACETAMINOPHEN 325 MG TABLET (FP) ONE (12:32)
--- NOTE | 2018-08-01 12:39 | CON.CARD ---
Consult Consult Specialty:: Cardiology Reason for Consultation:: cp - History of Present Illness History of Present Illness: PMH Alcoholism Apical "ballooning" CAD - mLAD 80%, mRCA 70% February 11, 2016 Dr. Castrejon CHF HOCOM s/p [employer] DDD January 2016 Dr. Gracia Hx of sustained VT Hyperlipidemia Hypertension ZHAO mLAD [place] Pres[facility]. dr. Castrejon 2017 - History Source History Provided By: Patient, Medical Record - Alcohol/Substance Use Hx Alcohol Use: Yes - Smoking History Smoking history: Former smoker Have you smoked in the past 12 months: Yes Aproximately how many cigarettes per day: 10 Home Medications - Allergies Allergies/Adverse Reactions: Allergies Allergy/AdvReac Type Severity Reaction Status Date / Time metoprolol Allergy Severe Itching Verified 08/01/18 08:46 - Home Medications Home Medications: Ambulatory Orders Atenolol [Tenormin -] 50 mg PO DAILY 07/13/16 Aspirin [ASA -] 81 mg PO DAILY #30 tab 03/15/17 Atorvastatin Ca [Lipitor] 80 mg PO HS #30 tab 03/15/17 Clopidogrel Bisulfate [Clopidogrel] 75 mg PO DAILY #30 tab 03/15/17 Amiodarone HCl [Cordarone -] 200 mg PO DAILY 08/01/18 Pantoprazole Sodium 40 mg PO DAILY 08/01/18 Family Disease History - Family Disease History Family Disease History: Heart Disease: Sister (htn, etoh), Daughter, CA: Father (lung cancer (alive)), Other: Father, Mother (dementia (alive)), Sister, Daughter Review of Systems - Review of Systems Constitutional: reports: No Symptoms Eyes: reports: No Symptoms HENT: reports: No Symptoms Neck: reports: No Symptoms Cardiovascular: reports: Chest Pain Gastrointestinal: reports: No Symptoms Genitourinary: reports: No Symptoms Breasts: reports: No Symptoms Reported Musculoskeletal: reports: No Symptoms Integumentary: reports: No Symptoms Neurological: reports: No Symptoms Endocrine: reports: No Symptoms Hematology/Lymphatic: reports: No Symptoms Psychiatric: reports: No Symptoms Vital Signs: Vital Signs Temperature 98.9 F 08/01/18 10:22 Pulse Rate 64 08/01/18 10:22 Respiratory Rate 18 08/01/18 10:22 Blood Pressure 163/94 08/01/18 10:22 O2 Sat by Pulse Oximetry (%) 95 08/01/18 10:22 Constitutional: Yes: Well Nourished, No Distress, Calm Eyes: Yes: WNL, Conjunctiva Clear, EOM Intact HENT: Yes: WNL, Atraumatic, Normocephalic Neck: Yes: WNL, Supple, Trachea Midline Respiratory: Yes: WNL, Regular, CTA Bilaterally Gastrointestinal: Yes: WNL, Normal Bowel Sounds Renal/: Yes: WNL Cardiovascular: Yes: WNL, Regular Rate and Rhythm Musculoskeletal: Yes: WNL Extremities: Yes: WNL Integumentary: Yes: WNL Neurological: Yes: WNL, Alert, Oriented ...Motor Strength: WNL Psychiatric: Yes: WNL, Alert, Oriented - Other Data Labs, Other Data: CBC, BMP 08/01/18 09:48 08/01/18 09:48 INR, PTT INR 1.13 (0.83-1.09) H 08/01/18 09:48 Troponin, BNP 08/01/18 08/01/18 09:48 09:48 Troponin I 0.04 B-Natriuretic Peptide 5165.5 H Troponin, BNP 08/01/18 08/01/18 09:48 09:48 Troponin I 0.04 B-Natriuretic Peptide 5165.5 H Imaging - Results Chest X-ray: Image Reviewed (r base consolidation) EKG: Image Reviewed (sr rep abn lat ischemia? - no changes) Problem List - Problems (1) AICD discharge Code(s): Z45.02 - ENCNTR FOR ADJUST AND MGMT OF AUTOMATIC IMPLNTBL CARD DEFIB (2) Abnormal EKG Code(s): R94.31 - ABNORMAL ELECTROCARDIOGRAM [ECG] [EKG] (3) Alcohol use disorder Code(s): ZFE6997 - (4) Alcohol-induced mood disorder Code(s): F10.94 - ALCOHOL USE, UNSPECIFIED WITH ALCOHOL-INDUCED MOOD DISORDER (5) Chest pain Code(s): R07.9 - CHEST PAIN, UNSPECIFIED (6) Drug-induced mood disorder Code(s): F19.94 - OTH PSYCHOACTIVE SUBSTANCE USE, UNSP W MOOD DISORDER (7) Elevated troponin Code(s): R74.8 - ABNORMAL LEVELS OF OTHER SERUM ENZYMES (8) HOCM (hypertrophic obstructive cardiomyopathy) Code(s): I42.1 - OBSTRUCTIVE HYPERTROPHIC CARDIOMYOPATHY (9) Insomnia Code(s): G47.00 - INSOMNIA, UNSPECIFIED (10) NSVT (nonsustained ventricular tachycardia) Code(s): I47.2 - VENTRICULAR TACHYCARDIA (11) Syncope Code(s): R55 - SYNCOPE AND COLLAPSE (12) Tachycardia Code(s): R00.0 - TACHYCARDIA, UNSPECIFIED (13) Ventricular tachycardia Code(s): I47.2 - VENTRICULAR TACHYCARDIA (14) Romy infection of flexural skin Code(s): B37.2 - CANDIDIASIS OF SKIN AND NAIL (15) Depression Code(s): F32.9 - MAJOR DEPRESSIVE DISORDER, SINGLE EPISODE, UNSPECIFIED (16) HTN (hypertension) Code(s): I10 - ESSENTIAL (PRIMARY) HYPERTENSION Qualifiers: Hypertension type: essential hypertension Qualified Code(s): I10 - Essential (primary) hypertension (17) History of cardiac pacemaker in situ Code(s): Z95.0 - PRESENCE OF CARDIAC PACEMAKER (18) Hyperlipidemia Code(s): E78.5 - HYPERLIPIDEMIA, UNSPECIFIED Qualifiers: Hyperlipidemia type: pure hypercholesterolemia Qualified Code(s): E78.00 - Pure hypercholesterolemia, unspecified (19) Hypertensive hypertrophic cardiomyopathy, without heart failure Code(s): I11.9 - HYPERTENSIVE HEART DISEASE WITHOUT HEART FAILURE; I42.2 - OTHER HYPERTROPHIC CARDIOMYOPATHY (20) Hypertrophic cardiomyopathy Code(s): I42.2 - OTHER HYPERTROPHIC CARDIOMYOPATHY (21) Nicotine dependence Code(s): F17.200 - NICOTINE DEPENDENCE, UNSPECIFIED, UNCOMPLICATED Qualifiers: Nicotine product type: cigarettes Substance use status: uncomplicated Qualified Code(s): F17.210 - Nicotine dependence, cigarettes, uncomplicated Assessment/Plan cp sx s/p recent PCI Alcoholism Apical "ballooning" CAD - mLAD 80%, mRCA 70% February 11, 2016 Dr. Castrejon CHF decompensated HOCOM s/p [employer] DDD January 2016 Dr. Garcia Hx of sustained VT Hyperlipidemia Hypertension [facility]. dr. Castrejon 2017 Plan; r/o mi consider low dose of lasix telemetry needs revascularization of RCA
[2018-08-01] MEDS ORDERED: FUROSEMIDE 40 MG/4 ML INJECTABLE VIAL IVPUSH ONE (13:31)
[2018-08-01] MEDS ORDERED: VANCOMYCIN 1,000 MG in DEXTROSE 5%-WATER - 250 ML IVPB ONE (13:38)
[2018-08-01] MEDS ORDERED: PIPERACILLIN/TAZOB 3.375 GM 3.375 GM in DEXTROSE 5%-WATER - 50 ML IVPB ONE (13:38)
[2018-08-01] MEDS ORDERED: FUROSEMIDE 40 MG/4 ML INJECTABLE VIAL ONE (13:44)
[2018-08-01] MEDS ORDERED: VANCOMYCIN 1 GRAM (PRE-DOCKED) 1,000 MG/250 ML BAG IVPB ONE (13:44)
[2018-08-01] MEDS ORDERED: PIPERACILLIN/TAZOB 3.375 GM 3.375 GM/50 ML BAG IVPB ONE (13:46)
[2018-08-01 14:21] LABS: URINE APPEARANCE CLEAR; URINE BILIRUBIN NEGATIVE (<2.0 mg/dL); URINE COLOR LTYELLOW; URINE GLUCOSE (UA) NEGATIVE (NEGATIVE); URINE KETONE NEGATIVE (NEGATIVE); URINE LEUK ESTERASE 2+ (NEGATIVE); URINE NITRITE NEGATIVE (NEGATIVE); URINE PROTEIN NEGATIVE (NEGATIVE)
[2018-08-01 14:35] LABS: EPI CELLS RARE /HPF (FEW); URINE BACTERIA RARE /hpf (NONE SEEN)
--- NOTE | 2018-08-01 17:56 | HP ---
Admitting History and Physical - Primary Care Physician PCP: Tonia Marroquin - Admission History of Present Illness: Patient is a 58-year-old black female with past medical history of VT x 2 ( then 2nd led to coronary stent within the past 2 weeks),OHCM (s/p AICD placement ), hypertension, hyperlipidemia, coronary artery disease, EtOH disorder, as to the emergency department with 3 days of cough, runny nose and just not feeling well. She states that yesterday she had shortness of breath with walking and some chest pressure. Today they have both since resolved. Patient was recently discharged from the hospital approximately 1 week ago after having an episode with her ICD. Denies fevers, chills, earache, palpitations, edema, nausea, vomiting and diarrhea. - Past Medical History Cardiovascular: Yes: HTN, Hyperlipdemia, VT - Smoking History Smoking history: Former smoker Have you smoked in the past 12 months: No Aproximately how many cigarettes per day: 10 - Alcohol/Substance Use Hx Alcohol Use: Yes Home Medications - Allergies Allergies/Adverse Reactions: Allergies Allergy/AdvReac Type Severity Reaction Status Date / Time metoprolol Allergy Severe Itching Verified 08/01/18 08:46 - Home Medications Home Medications: Ambulatory Orders Atenolol [Tenormin -] 50 mg PO DAILY 07/13/16 Aspirin [ASA -] 81 mg PO DAILY #30 tab 03/15/17 Atorvastatin Ca [Lipitor] 80 mg PO HS #30 tab 03/15/17 Clopidogrel Bisulfate [Clopidogrel] 75 mg PO DAILY #30 tab 03/15/17 Amiodarone HCl [Cordarone -] 200 mg PO DAILY 08/01/18 Pantoprazole Sodium 40 mg PO DAILY 08/01/18 Amoxicillin/Potassium Clav [Augmentin 875-125 Tablet] 1 each PO BID #20 tablet 08/02/18 Family Disease History - Family Disease History Family Disease History: Heart Disease: Sister (htn, etoh), Daughter, CA: Father (lung cancer (alive)), Other: Father, Mother (dementia (alive)), Sister, Daughter Physical Examination Vital Signs: Vital Signs Temperature 98 F 08/01/18 16:00 Pulse Rate 68 08/01/18 16:00 Respiratory Rate 18 08/01/18 16:56 Blood Pressure 153/86 08/01/18 16:00 O2 Sat by Pulse Oximetry (%) 98 08/01/18 16:56 Constitutional: Yes: No Distress HENT: Yes: Atraumatic Neck: Yes: Supple Cardiovascular: Yes: Regular Rate and Rhythm Respiratory: Yes: Rhonchi Gastrointestinal: Yes: Normal Bowel Sounds Extremities: Yes: WNL Edema: No Neurological: Yes: Alert, Oriented Labs: CBC, BMP 08/01/18 09:48 08/01/18 09:48 Imaging - Results X-ray: Report Reviewed Problem List - Problems (1) Shortness of breath Assessment/Plan: uri/sinusitis on abx id consult Code(s): R06.02 - SHORTNESS OF BREATH (2) Pneumonia Assessment/Plan: possible pna id on board on abx Code(s): J18.9 - PNEUMONIA, UNSPECIFIED ORGANISM Qualifiers: Pneumonia type: due to unspecified organism Laterality: right Lung location: lower lobe of lung Qualified Code(s): J18.1 - Lobar pneumonia, unspecified organism Assessment/Plan Laboratory Results - last 24 hr 08/01/18 08/01/18 08/01/18 09:30 09:48 09:48 WBC 8.1 RBC 4.27 Hgb 13.2 Hct 40.1 MCV 93.9 MCH 31.0 MCHC 33.0 RDW 13.3 Plt Count 319 D MPV 9.3 Absolute Neuts (auto) 5.8 Neutrophils % 72.1 D Lymphocytes % 17.4 D Monocytes % 8.7 Eosinophils % 0.8 Basophils % 1.0 Nucleated RBC % 0 PT with INR INR Sodium 139 Potassium 4.5 Chloride 108 H Carbon Dioxide 23 Anion Gap 9 BUN 12 Creatinine 0.9 Creat Clearance w eGFR > 60 Random Glucose 91 Calcium 8.3 L Magnesium 1.8 Total Bilirubin 0.8 AST 36 ALT 81 H Alkaline Phosphatase 104 Creatine Kinase Troponin I B-Natriuretic Peptide 5165.5 H Total Protein 6.6 Albumin 3.2 L Urine Color Urine Appearance Urine pH Ur Specific [place] Urine Protein Urine Glucose (UA) Urine Ketones Urine Blood Urine Nitrite Urine Bilirubin Urine Urobilinogen Ur Leukocyte Esterase Urine WBC (Auto) Urine RBC (Auto) Ur Epithelial Cells Urine Bacteria Influenza A (Rapid) Negative Influenza B (Rapid) Negative 08/01/18 08/01/18 08/01/18 09:48 09:48 12:35 WBC RBC Hgb Hct MCV MCH MCHC RDW Plt Count MPV Absolute Neuts (auto) Neutrophils % Lymphocytes % Monocytes % Eosinophils % Basophils % Nucleated RBC % PT with INR 13.40 H INR 1.13 H Sodium Potassium Chloride Carbon Dioxide Anion Gap BUN Creatinine Creat Clearance w eGFR Random Glucose Calcium Magnesium Total Bilirubin AST ALT Alkaline Phosphatase Creatine Kinase 81 56 Troponin I 0.04 0.04 B-Natriuretic Peptide Total Protein Albumin Urine Color Urine Appearance Urine pH Ur Specific [place] Urine Protein Urine Glucose (UA) Urine Ketones Urine Blood Urine Nitrite Urine Bilirubin Urine Urobilinogen Ur Leukocyte Esterase Urine WBC (Auto) Urine RBC (Auto) Ur Epithelial Cells Urine Bacteria Influenza A (Rapid) Influenza B (Rapid) 08/01/18 14:00 WBC RBC Hgb Hct MCV MCH MCHC RDW Plt Count MPV Absolute Neuts (auto) Neutrophils % Lymphocytes % Monocytes % Eosinophils % Basophils % Nucleated RBC % PT with INR INR Sodium Potassium Chloride Carbon Dioxide Anion Gap BUN Creatinine Creat Clearance w eGFR Random Glucose Calcium Magnesium Total Bilirubin AST ALT Alkaline Phosphatase Creatine Kinase Troponin I B-Natriuretic Peptide Total Protein Albumin Urine Color Ltyellow Urine Appearance Clear Urine pH 7.0 Ur Specific [place] 1.005 L Urine Protein Negative Urine Glucose (UA) Negative Urine Ketones Negative Urine Blood Negative Urine Nitrite Negative Urine Bilirubin Negative Urine Urobilinogen 2.0 H Ur Leukocyte Esterase 2+ H Urine WBC (Auto) 8 Urine RBC (Auto) None Ur Epithelial Cells Rare Urine Bacteria Rare Influenza A (Rapid) Influenza B (Rapid) Active Medications Generic Name Dose Route Start Last Admin Trade Name Freq PRN Reason Stop Dose Admin Amiodarone HCl 200 mg 08/02/18 10:00 Cordarone - PO DAILY [facility] Aspirin 81 mg 08/02/18 10:00 Asa - PO DAILY [facility] Atenolol 50 mg 08/02/18 10:00 Tenormin - PO DAILY [facility] Atorvastatin Calcium 80 mg 08/01/18 22:00 Lipitor - PO HS [facility] Clopidogrel Bisulfate 75 mg 08/02/18 10:00 Plavix - PO DAILY [facility] Pantoprazole Sodium 40 mg 08/02/18 10:00 Protonix - PO DAILY [facility]
[2018-08-01] MEDS ORDERED: ACETAMINOPHEN 325 MG TABLET (FP) PO PRN (21:53)
[2018-08-01] MEDS ORDERED: ATORVASTATIN CA 80 MG TABLET (FP) PO SCH (22:00)
[2018-08-01] MEDS: PSEUDOEPHEDRINE HCL 30 MG TABLET PO SCH (22:26)
[2018-08-01] MEDS: guaiFENesin 200 MG/10 ML 10 ML UNIT-DOSE CUPS PO PRN (22:36)
[2018-08-02] MEDS: PSEUDOEPHEDRINE HCL 30 MG TABLET PO SCH ×3 (06:35→17:34)
[2018-08-02] MEDS: guaiFENesin 200 MG/10 ML 10 ML UNIT-DOSE CUPS PO PRN (06:39)
[2018-08-02 07:02] LABS: BASO % 1.1 % (0-2.0); EOS % 0.9 % (0-4.5); HEMATOCRIT 39.3 % (32.4-45.2); MCHC 33.2 g/dl (32.0-36.0); MEAN CELL VOLUME 93.4 fl (80-96); MEAN PLT VOLUME 9.6 fl (7.5-11.1); MONO % 10.4 % (3.8-10.2); NEUT % 68.6 % (42.8-82.8); PLATELET COUNT 327 K/MM3 (134-434); RDW 13.4 % (11.6-15.6); WHITE BLOOD COUNT 8.1 K/mm3 (4.0-10.0)
[2018-08-02 07:46] LABS: ALBUMIN 2.9 g/dl (3.4-5.0); ALK PHOS 87 U/L (45-117); ANION GAP 8 MMOL/L (8-16); BILIRUBIN,TOTAL 0.8 mg/dL (0.2-1); BLOOD UREA NITROGEN 12 mg/dL (7-18); CALCIUM 8.6 mg/dL (8.5-10.1); CHLORIDE 106 mmol/L (98-107); CO2 26 mmol/L (21-32); GLUCOSE,RANDOM 94 mg/dL (74-106); POTASSIUM 4.6 mmol/L (3.5-5.1); SGOT/AST 17 U/L (15-37); SGPT/ALT 55 U/L (13-61); SODIUM 141 mmol/L (136-145)
--- NOTE | 2018-08-02 09:42 | PN ---
Progress Note, Physician Chief Complaint: Pt A&Ozx3; Sitting up at bedside; feels "100% BETTER" (less SOB); no chest pain. History of Present Illness: Patient is a 58-year-old black female with past medical history of MS x 2 ( then 2nd led to coronary stent within the past 2 weeks),OHCM (s/p AICD placement ), hypertension, hyperlipidemia, coronary artery disease, EtOH disorder, as to the emergency department with 3 days of cough, runny nose and just not feeling well. She states that yesterday she had shortness of breath with walking and some chest pressure. Today they have both since resolved. Patient was recently discharged from the hospital approximately 1 week ago after having an episode with her ICD. Denies fevers, chills, earache, palpitations, edema, nausea, vomiting and diarrhea. - Current Medication List Current Medications: Active Medications Acetaminophen (Tylenol -) 650 mg PO Q6H PRN PRN Reason: FEVER Amiodarone HCl (Cordarone -) 200 mg PO DAILY [facility] Aspirin (Asa -) 81 mg PO DAILY [facility] Atenolol (Tenormin -) 50 mg PO DAILY [facility] Atorvastatin Calcium (Lipitor -) 80 mg PO HS [facility] Last Admin: 08/01/18 22:25 Dose: 80 mg Clopidogrel Bisulfate (Plavix -) 75 mg PO DAILY [facility] Guaifenesin (Robitussin -) 10 ml PO Q6H PRN PRN Reason: COUGH Last Admin: 08/02/18 06:39 Dose: 10 ml Pantoprazole Sodium (Protonix -) 40 mg PO DAILY [facility] Pseudoephedrine HCl (Sudafed -) 30 mg PO Q6HPO [facility] Last Admin: 08/02/18 06:35 Dose: 30 mg - Objective Vital Signs: Vital Signs Temperature 98.6 F 08/02/18 06:00 Pulse Rate 74 08/02/18 06:00 Respiratory Rate 20 08/02/18 06:00 Blood Pressure 149/87 08/02/18 06:00 O2 Sat by Pulse Oximetry (%) 97 08/01/18 21:00 Constitutional: Yes: Well Nourished Eyes: Yes: WNL HENT: Yes: WNL Cardiovascular: Yes: WNL Respiratory: Yes: Diminished Labs: CBC, BMP 08/02/18 05:30 08/02/18 05:30 INR, PTT INR 1.13 (0.83-1.09) H 08/01/18 09:48 Problem List - Problems (1) Pneumonia Code(s): J18.9 - PNEUMONIA, UNSPECIFIED ORGANISM Qualifiers: Pneumonia type: due to unspecified organism Laterality: right Lung location: lower lobe of lung Qualified Code(s): J18.1 - Lobar pneumonia, unspecified organism (2) Shortness of breath Code(s): R06.02 - SHORTNESS OF BREATH (3) Alcohol use disorder Code(s): [id number] - (4) HOCM (hypertrophic obstructive cardiomyopathy) Assessment/Plan: ECHO : severe lvh; severe apical hhypokinesis; LVEF 50-55%; moderatre AR mild- moderate pulmonary HTN; mild LAE Code(s): I42.1 - OBSTRUCTIVE HYPERTROPHIC CARDIOMYOPATHY (5) Hyperlipidemia Code(s): E78.5 - HYPERLIPIDEMIA, UNSPECIFIED Qualifiers: Hyperlipidemia type: pure hypercholesterolemia Qualified Code(s): E78.00 - Pure hypercholesterolemia, unspecified (6) Nicotine dependence Assessment/Plan: Pt sais she has quit cigarettes since the coronary stetn after MS two weeks ago. Code(s): F17.200 - NICOTINE DEPENDENCE, UNSPECIFIED, UNCOMPLICATED Qualifiers: Nicotine product type: cigarettes Substance use status: uncomplicated Qualified Code(s): F17.210 - Nicotine dependence, cigarettes, uncomplicated (7) Status post myocardial infarction Assessment/Plan: 2nd MS/ this has led to coronary stetn at [facility] ?07/24/2018. CONtinyue ASA and PLavix. TNI 0.04 x 3. Pt is schuled for 2nd coronary stent at the end of this month. Code(s): I25.2 - OLD MYOCARDIAL INFARCTION
[2018-08-02] MEDS ORDERED: ATENOLOL 25 MG TABLET (FP) PO SCH (10:00)
[2018-08-02] MEDS ORDERED: PANTOPRAZOLE 40 MG TABLET (FP) PO SCH (10:00)
[2018-08-02] MEDS ORDERED: ASPIRIN 81 MG CHEWABLE TABLETS PO SCH (10:00)
[2018-08-02] MEDS ORDERED: AMIODARONE HCL 200 MG TABLET (FP) PO SCH (10:00)
[2018-08-02] MEDS ORDERED: CLOPIDOGREL BISULFATE 75 MG TABLET (FP) PO SCH (10:00)
--- NOTE | 2018-08-02 12:37 | CON.ID ---
Consult - Alcohol/Substance Use Hx Alcohol Use: Yes - Smoking History Smoking history: Former smoker Have you smoked in the past 12 months: Yes Aproximately how many cigarettes per day: 10 Home Medications - Allergies Allergies/Adverse Reactions: Allergies Allergy/AdvReac Type Severity Reaction Status Date / Time metoprolol Allergy Severe Itching Verified 08/01/18 08:46 - Home Medications Home Medications: Ambulatory Orders Atenolol [Tenormin -] 50 mg PO DAILY 07/13/16 Aspirin [ASA -] 81 mg PO DAILY #30 tab 03/15/17 Atorvastatin Ca [Lipitor] 80 mg PO HS #30 tab 03/15/17 Clopidogrel Bisulfate [Clopidogrel] 75 mg PO DAILY #30 tab 03/15/17 Amiodarone HCl [Cordarone -] 200 mg PO DAILY 08/01/18 Pantoprazole Sodium 40 mg PO DAILY 08/01/18 Family Disease History - Family Disease History Family Disease History: Heart Disease: Sister (htn, etoh), Daughter, CA: Father (lung cancer (alive)), Other: Father, Mother (dementia (alive)), Sister, Daughter Physical Exam Vital Signs: Vital Signs Temperature 99.7 F H 08/02/18 09:00 Pulse Rate 67 08/02/18 09:00 Respiratory Rate 20 08/02/18 09:00 Blood Pressure 146/74 08/02/18 09:00 O2 Sat by Pulse Oximetry (%) 97 08/02/18 09:00 Labs: CBC, BMP 08/02/18 05:30 08/02/18 05:30
[2018-08-02 15:54] VITALS: BP 156/75; PULSE 64; TEMP 98.1
--- NOTE | 2018-08-02 17:14 | DS ---
Physical Examination Vital Signs: Vital Signs Temperature 98.1 F 08/02/18 14:00 Pulse Rate 64 08/02/18 14:00 Respiratory Rate 20 08/02/18 12:00 Blood Pressure 156/75 08/02/18 14:00 O2 Sat by Pulse Oximetry (%) 97 08/02/18 12:00 Constitutional: Yes: No Distress HENT: Yes: Atraumatic Neck: Yes: Supple Cardiovascular: Yes: Regular Rate and Rhythm Respiratory: Yes: CTA Bilaterally Gastrointestinal: Yes: Normal Bowel Sounds Extremities: Yes: WNL Edema: No Neurological: Yes: Alert, Oriented Labs: CBC, BMP 08/02/18 05:30 08/02/18 05:30 Discharge Summary Reason For Visit: CHEST PAIN,SOB,PNA Current Active Problems Pneumonia (Acute) Shortness of breath (Acute) Status post myocardial infarction (Acute) Condition: Stable - Instructions Diet, Activity, Other Instructions: see your pmd 2-3 days Referrals: Aby Jeronimo [Primary Care Provider] - Disposition: HOME - Home Medications Comprehensive Discharge Medication List: Ambulatory Orders Atenolol [Tenormin -] 50 mg PO DAILY 07/13/16 Aspirin [ASA -] 81 mg PO DAILY #30 tab 03/15/17 Atorvastatin Ca [Lipitor] 80 mg PO HS #30 tab 03/15/17 Clopidogrel Bisulfate [Clopidogrel] 75 mg PO DAILY #30 tab 03/15/17 Amiodarone HCl [Cordarone -] 200 mg PO DAILY 08/01/18 Pantoprazole Sodium 40 mg PO DAILY 08/01/18 Amoxicillin/Potassium Clav [Augmentin 875-125 Tablet] 1 each PO BID #20 tablet 08/02/18 d/w id dc home on po abx
[2018-08-02] MEDS ORDERED: AMOX TR/POT CLAV 875MG/125MG TABLETS (FP) PO SCH (17:30)
== END 2018-08-02 18:51 | disposition home or self-care (01) | DRG 194 ==
LOC: JER 08:39 → JERBED 14:09 → J4W 15:33
PROVIDERS: ADMIT Internal Medicine; ATTEND Internal Medicine
DX: J18.9 Pneumonia, unspecified organism (principal); I42.1 Obstructive hypertrophic cardiomyopathy; J90 Pleural effusion, not elsewhere classified; I25.10 Atherosclerotic heart disease of native coronary artery without angina pectoris; I10 Essential (primary) hypertension; E78.5 Hyperlipidemia, unspecified; F10.10 Alcohol abuse, uncomplicated; I25.2 Old myocardial infarction; Z87.891 Personal history of nicotine dependence; Z95.810 Presence of automatic (implantable) cardiac defibrillator
CPT/HCPCS: 36415; 71046-TC-FY; 80053; 81003; 81015; 82550; 83735; 83880; 84484; 85025; 85610; 87086; 87804; 93005; 93010; 99284-25

== ENCOUNTER 2018-12-08 20:14 | Inpatient (IN) | payer OTHER ==
[2018-12-08 21:07] VITALS: BMI 28.3
--- NOTE | 2018-12-08 21:26 | HP ---
CIWA Score Nausea/Vomitin-Mild Nausea/No Vomiting Muscle Tremors: 4-Moderate,w/Arms Extend Anxiety: 4-Mod. Anxious/Guarded Agitation: 2 Paroxysmal Sweats: 2 Orientation: 0-Oriented Tacttile Disturbances: 0-None Auditory Disturbances: 0-None Visual Disturbances: 0-None Headache: 3-Moderate CIWA-Ar Total Score: 16 - Admission Criteria OASAS Guidelines: Admission for Medically Managed Detox: Requires at least one of the followin. CIWA greater than 12 2. Seizures within the past 24 hours 3. Delirium tremens within the past 24 hours 4. Hallucinations within the past 24 hours 5. Acute intervention needed for co occurring medical disorder 6. Acute intervention needed for co occurring psychiatric disorder 7. Severe withdrawal that cannot be handled at a lower level of care (continued vomiting, continued diarrhea, abnormal vital signs) requiring intravenous medication and/or fluids 8. Admission ROS [facility] - [facility] Chief Complaint: Alcohol withdrawal symptoms Allergies/Adverse Reactions: Allergies Allergy/AdvReac Type Severity Reaction Status Date / Time metoprolol Allergy Severe Itching Verified 12/08/18 20:53 History of Present Illness: 58 years old female with a long history of alcohol dependence is seeking admission to detox. Patient has been to previous detox, last was 3 years ago here at [facility]. She reports past medical history of [place] x 2 ( coronary stent ), OHCM (s/p AICD placement), hypertension, hyperlipidemia and coronary artery disease. She denies suicide attempt and denies suicidal ideation at this time. Exam Limitations: No Limitations - Ebola screening Have you traveled outside of the country in the last 21 days: No (N) Have you had contact with anyone from an Ebola affected area: No Have you been sick,other than usual withdrawal symptoms: No Do you have a fever: No - Review of Systems Constitutional: Chills, Night Sweats, Changes in sleep EENT: reports: Blurred Vision, Hearing Loss (bilateral ears) Respiratory: reports: No Symptoms reported Cardiac: reports: No Symptoms Reported GI: reports: Poor Appetite, Poor Fluid Intake, Abdominal cramping : reports: No Symptoms Reported Musculoskeletal: reports: Other (knee pain) Integumentary: reports: Dryness, Flushing Neuro: reports: Tingling, Tremors Endocrine: reports: No Symptoms Reported Hematology: reports: No Symptoms Reported Psychiatric: reports: Mood/Affect Appropiate, Orientated x3, Agitated, Anxious Other Systems: Reviewed and Negative Patient History - Patient Medical History Hx Anemia: No Hx Asthma: No Hx Chronic Obstructive Pulmonary Disease (COPD): No Hx Cancer: No Hx Cardiac Disorders: Yes (HYPERTROPHIC CARDIOMYOPATHY with Arrythmia) Hx Congestive Heart Failure: No Hx Hypertension: Yes (Amiodarone, atenolol, aspirin) Hx Hypercholesterolemia: Yes (Atorvastatin) Hx Pacemaker: Yes HX Cerebrovascular Accident: No Hx Seizures: No Hx Dementia: No Hx Diabetes: No Hx Gastrointestinal Disorders: Yes (Pantoprazole) Hx Liver Disease: No Hx Genitourinary Disorders: No Hx Sexually Transmitted Disorders: No Hx Renal Disease (ESRD): No Hx Thyroid Disease: No Hx Human Immunodeficiency Virus (HIV): No (Negative 1989) Hx Hepatitis C: No Hx Depression: No Hx Suicide Attempt: No (Denies suicidal ideation at this time) Hx Bipolar Disorder: No Hx Schizophrenia: No - Patient Surgical History Past Surgical History: Yes Hx Neurologic Surgery: No Hx Cataract Extraction: No Hx Cardiac Surgery: Yes (S/P AICD/PPM 2015) Hx Lung Surgery: No Hx Breast Surgery: No Hx Breast Biopsy: Yes (Left breast biopsy 40 yrs ago, (+) Benign) Hx Abdominal Surgery: No Hx Appendectomy: No Hx Cholecystectomy: No Hx Genitourinary Surgery: No Hx Section: No Hx Orthopedic Surgery: No Hx Hysterectomy: No Anesthesia Reaction: No - PPD History Date: 03/13/17 Results: 0 mm PPD to be Administered?: Yes - Reproductive History Patient is a Female of Child Bearing Age (11 -55 yrs old): Yes LMP comment: MENOPAUSAL - Smoking Cessation Smoking history: Former smoker Have you smoked in the past 12 months: No Cigars Per Day: 0 Hx Chewing Tobacco Use: No Initiated information on smoking cessation: No - Substance & Tx. History Hx Alcohol Use: No Hx Substance Use: No Substance Use Type: Alcohol Hx Substance Use Treatment: Yes ([facility]) - Substances abused Alcohol Substance route: Oral Frequency: Daily Amount used: 16 (12oz) cans Age of first use: 13 Date of last use: 12/08/18 Family Disease History - Family Disease History Family Disease History: Heart Disease: Sister (htn, etoh), Daughter, CA: Father (lung cancer (alive)), Other: Father, Mother (dementia (alive)), Sister, Daughter Admission Physical Exam [facility] - Vital Signs Vital Signs: Vital Signs - 24 hr 12/08/18 20:49 Temperature 99.5 F Pulse Rate 98 H Respiratory 20 Rate Blood Pressure 150/95 - Physical General Appearance: Yes: Moderate Distress, Tremorous, Sweating, Anxious HEENTM: Yes: EOMI, Normal ENT Inspection, Normal Voice, SALUD Respiratory: Yes: Lungs Clear, Normal Breath Sounds Neck: Yes: Supple Breast: Yes: Breast Exam Deferred Cardiology: Yes: Regular Rhythm, Regular Rate Abdominal: Yes: Normal Bowel Sounds Genitourinary: Yes: Within Normal Limits Back: Yes: Normal Inspection Musculoskeletal: Yes: Other (KNEE PIN) Extremities: Yes: Tremors Neurological: Yes: Alert, Normal Mood/Affect Integumentary: Yes: Within Normal Limits Lymphatic: Yes: Within Normal Limits - Diagnostic (1) HOCM (hypertrophic obstructive cardiomyopathy) Current Visit: Yes Status: Chronic (2) Status post myocardial infarction Current Visit: No Status: Chronic (3) Depression Current Visit: Yes Status: Chronic (4) HTN (hypertension) Current Visit: Yes Status: Chronic Qualifiers: Hypertension type: essential hypertension Qualified Code(s): I10 - Essential (primary) hypertension (5) History of cardiac pacemaker in situ Current Visit: Yes Status: Chronic (6) Hyperlipidemia Current Visit: Yes Status: Chronic Qualifiers: Hyperlipidemia type: pure hypercholesterolemia Qualified Code(s): E78.00 - Pure hypercholesterolemia, unspecified (7) Hypertensive hypertrophic cardiomyopathy, without heart failure Current Visit: Yes Status: Chronic Cleared for Admission [facility] - Detox or Rehab [facility] Level of Care: Medically Managed Detox Regimen/Protocol: [employer] Urine Drug Screen - Test Device Lot number: [id number] Expiration date: 07/27/20 - Control Is test valid?: Yes - Results Drug screen NEGATIVE: Yes Inpatient Rehab Admission - Rehab Decision to Admit Inpatient rehab admission?: No
[2018-12-08] MEDS ORDERED: BISMUTH SUBSALICYLATE 524 MG/30 ML UD PO PRN (21:40)
[2018-12-08] MEDS ORDERED: hydrOXYzine PAMOATE 25 MG CAPSULE (FP) PO PRN (21:40)
[2018-12-08] MEDS ORDERED: MAGNESIUM CITRATE 300 ML BOTTLE PO PRN (21:40)
[2018-12-08] MEDS ORDERED: MENTHOL/PHENOL 1 EACH UD MM PRN (21:40)
[2018-12-08] MEDS ORDERED: MAGNESIUM HYDROX 2400MG/30ML ORAL SUSPENSION 30 ML CUP PO PRN (21:40)
[2018-12-08] MEDS ORDERED: chlordiazePOXIDE HCL 25 MG CAPSULE PO PRN (21:40)
[2018-12-08] MEDS ORDERED: IBUPROFEN 400 MG TABLET (FP) PO PRN (21:40)
[2018-12-08] MEDS ORDERED: ACETAMINOPHEN 325 MG TABLET (FP) PO PRN ×2 (21:40)
[2018-12-08] MEDS ORDERED: MAG HYDROX/AL HYDROX/SIMETH 30 ML UNIT-DOSE CUP PO PRN (21:40)
[2018-12-08] MEDS ORDERED: METHOCARBAMOL 500 MG TABLET PO PRN (21:40)
[2018-12-08] MEDS: chlordiazePOXIDE HCL 25 MG CAPSULE PO SCH (22:35)
[2018-12-08] MEDS: THIAMINE HCL 100 MG TABLET (FP) PO SCH (22:35)
[2018-12-08] MEDS: ATORVASTATIN CA 80 MG TABLET (FP) PO SCH (22:35)
[2018-12-09] MEDS: chlordiazePOXIDE HCL 25 MG CAPSULE PO SCH ×4 (05:00→22:34)
[2018-12-09] MEDS: PANTOPRAZOLE 40 MG TABLET (FP) PO SCH (10:19)
[2018-12-09] MEDS: PRENATAL VITAMINS W/ FOLIC ACID TABLET (FP) PO SCH (10:19)
[2018-12-09] MEDS: CLOPIDOGREL BISULFATE 75 MG TABLET (FP) PO SCH (10:19)
[2018-12-09] MEDS: ATENOLOL 50 MG TABLET (FP) PO SCH (10:19)
[2018-12-09] MEDS: ASPIRIN 81 MG CHEWABLE TABLETS PO SCH (10:19)
[2018-12-09 10:21] LABS: ALBUMIN 3.2 g/dl (3.4-5.0); ALK PHOS 69 U/L (45-117); ANION GAP 7 MMOL/L (8-16); BILIRUBIN,TOTAL 0.4 mg/dL (0.2-1); BLOOD UREA NITROGEN 15 mg/dL (7-18); CALCIUM 8.6 mg/dL (8.5-10.1); CHLORIDE 104 mmol/L (98-107); CO2 23 mmol/L (21-32); CREATININE 0.9 mg/dL (0.55-1.3); GLUCOSE,RANDOM 123 mg/dL (74-106); POTASSIUM 4.2 mmol/L (3.5-5.1); SGOT/AST 17 U/L (15-37); SGPT/ALT 18 U/L (13-61); SODIUM 134 mmol/L (136-145); TOT PROT 6.4 g/dl (6.4-8.2)
[2018-12-09 10:28] LABS: HEMATOCRIT 40.7 % (32.4-45.2); HEMOGLOBIN 13.4 GM/dL (10.7-15.3); MCH 29.9 pg (25.7-33.7); MCHC 32.9 g/dl (32.0-36.0); MEAN CELL VOLUME 90.7 fl (80-96); MEAN PLT VOLUME 8.1 fl (7.5-11.1); PLATELET COUNT 277 K/MM3 (134-434); RBC 4.49 M/mm3 (3.60-5.2); WHITE BLOOD COUNT 4.4 K/mm3 (4.0-10.0)
[2018-12-09] MEDS: AMIODARONE HCL 200 MG TABLET (FP) PO SCH (11:02)
--- NOTE | 2018-12-09 12:38 | PN ---
Kellie Progress Note Note: PATIENT ADMITTED LAST NIGHT FOR ETOH WITHDRAWAL SYMPTOMS. C/O HEMORRHOIDS WHICH SHE HAS HAD FOR YEARS. WILL ORDER ANUSOL RECTAL CREAM. CONTINUE TO MONITOR CLINICALLY. Vital Signs Temperature 99.1 F 12/09/18 09:29 Pulse Rate 89 12/09/18 09:29 Respiratory Rate 18 12/09/18 09:29 Blood Pressure 146/84 12/09/18 09:29 O2 Sat by Pulse Oximetry (%) Laboratory Tests 12/09/18 12/09/18 12/09/18 07:15 07:15 07:15 WBC 4.4 RBC 4.49 Hgb 13.4 Hct 40.7 MCV 90.7 MCH 29.9 MCHC 32.9 RDW 16.0 H Plt Count 277 MPV 8.1 D Sodium 134 L Potassium 4.2 Chloride 104 Carbon Dioxide 23 Anion Gap 7 L BUN 15 Creatinine 0.9 Creat Clearance w eGFR 63.87 Random Glucose 123 H Calcium 8.6 Total Bilirubin 0.4 AST 17 ALT 18 Alkaline Phosphatase 69 Total Protein 6.4 Albumin 3.2 L RPR Titer Nonreactive
[2018-12-09] MEDS: HYDROCORTISONE 2.5% TOPICAL CREAM 30 GM TUBE TP SCH ×2 (15:18→22:33)
[2018-12-09] MEDS: ATORVASTATIN CA 80 MG TABLET (FP) PO SCH (22:34)
[2018-12-09] MEDS: THIAMINE HCL 100 MG TABLET (FP) PO SCH (22:34)
[2018-12-09] MEDS: MELATONIN 5 MG TABLETS PO PRN (22:34)
[2018-12-10] MEDS: chlordiazePOXIDE HCL 25 MG CAPSULE PO SCH ×3 (05:47→17:12)
[2018-12-10] MEDS: AMIODARONE HCL 200 MG TABLET (FP) PO SCH (10:13)
[2018-12-10] MEDS: ASPIRIN 81 MG CHEWABLE TABLETS PO SCH (10:13)
[2018-12-10] MEDS: CLOPIDOGREL BISULFATE 75 MG TABLET (FP) PO SCH (10:13)
[2018-12-10] MEDS: PRENATAL VITAMINS W/ FOLIC ACID TABLET (FP) PO SCH (10:13)
[2018-12-10] MEDS: ATENOLOL 50 MG TABLET (FP) PO SCH (10:13)
[2018-12-10] MEDS: PANTOPRAZOLE 40 MG TABLET (FP) PO SCH (10:13)
[2018-12-10] MEDS: HYDROCORTISONE 2.5% TOPICAL CREAM 30 GM TUBE TP SCH ×2 (10:14→22:10)
--- NOTE | 2018-12-10 10:40 | EKG ---
Test Reason : Blood Pressure : / mmHG Vent. Rate : 090 BPM Atrial Rate : 090 BPM P-R Int : 162 ms QRS Dur : 110 ms QT Int : 376 ms P-R-T Axes : 058 010 094 degrees QTc Int : 459 ms NORMAL SINUS RHYTHM BIATRIAL ENLARGEMENT NONSPECIFIC T WAVE ABNORMALITY ABNORMAL ECG WHEN COMPARED WITH ECG OF 01-AUG-2018 08:44, T WAVE INVERSION NOW EVIDENT IN ANTERIOR LEADS Confirmed by JAY JAY AWAN, TK ([id number]) on 12/10/2018 10:40:47 AM Referred By: Confirmed By:TK GOYAL MD
[2018-12-10] MEDS ORDERED: PROCHLORPERAZINE MALEATE 5 MG TABLET PO PRN (13:42)
--- NOTE | 2018-12-10 13:45 | PN ---
S CIWA - CIWA Score Nausea/Vomitin Muscle Tremors: None Anxiety: 3 Agitation: 1-Slight > Activity Paroxysmal Sweats: No Perspiration Orientation: 0-Oriented Tacttile Disturbances: 1-Very Mild Itch/Numbness Auditory Disturbances: 0-None Visual Disturbances: 2-Mild Sensitivity Headache: 3-Moderate CIWA-Ar Total Score: 13 [facility] Progress Note (SOAP) Subjective: H/A, Nausea. Objective: PATIENT A & O X 3, OBSERVED AMBULATING ON UNIT. IN NO ACUTE DISTRESS. 12/10/18 13:43 Vital Signs Temperature 98.9 F 12/10/18 09:50 Pulse Rate 78 12/10/18 09:50 Respiratory Rate 18 12/10/18 09:50 Blood Pressure 110/65 12/10/18 09:50 O2 Sat by Pulse Oximetry (%) Laboratory Tests 12/09/18 12/09/18 12/09/18 07:15 07:15 07:15 WBC 4.4 RBC 4.49 Hgb 13.4 Hct 40.7 MCV 90.7 MCH 29.9 MCHC 32.9 RDW 16.0 H Plt Count 277 MPV 8.1 D Sodium 134 L Potassium 4.2 Chloride 104 Carbon Dioxide 23 Anion Gap 7 L BUN 15 Creatinine 0.9 Creat Clearance w eGFR 63.87 Random Glucose 123 H Calcium 8.6 Total Bilirubin 0.4 AST 17 ALT 18 Alkaline Phosphatase 69 Total Protein 6.4 Albumin 3.2 L RPR Titer Nonreactive LABS NOTED. Assessment: 12/10/18 13:44 WITHDRAWAL SYMPTOMS. Plan: CONTINUE DETOX. PRN COMPAZINE PO FOR NAUSEA.
[2018-12-10] MEDS: ATORVASTATIN CA 80 MG TABLET (FP) PO SCH (22:11)
[2018-12-10] MEDS: chlordiazePOXIDE HCL 10 MG CAPSULE PO SCH (22:11)
[2018-12-10] MEDS: MELATONIN 5 MG TABLETS PO PRN (22:11)
[2018-12-10] MEDS: THIAMINE HCL 100 MG TABLET (FP) PO SCH (22:11)
[2018-12-10] MEDS ORDERED: chlordiazePOXIDE HCL 10 MG CAPSULE PO PRN (23:00)
[2018-12-11] MEDS: chlordiazePOXIDE HCL 10 MG CAPSULE PO SCH ×3 (05:19→22:12)
--- NOTE | 2018-12-11 09:56 | PN ---
S CIWA - CIWA Score Nausea/Vomitin-No Nausea/No Vomiting Muscle Tremors: 3 Anxiety: 2 Agitation: 2 Paroxysmal Sweats: 2 Orientation: 0-Oriented Tacttile Disturbances: 0-None Auditory Disturbances: 0-None Visual Disturbances: 0-None Headache: 0-None Present CIWA-Ar Total Score: 9 S Progress Note (SOAP) Subjective: tired mild shakes interrupted sleep Objective: 12/11/18 09:56 Vital Signs Temperature 97.5 F L 12/11/18 09:15 Pulse Rate 70 12/11/18 09:15 Respiratory Rate 18 12/11/18 09:15 Blood Pressure 122/71 12/11/18 09:15 O2 Sat by Pulse Oximetry (%) Laboratory Tests 12/09/18 12/09/18 12/09/18 07:15 07:15 07:15 WBC 4.4 RBC 4.49 Hgb 13.4 Hct 40.7 MCV 90.7 MCH 29.9 MCHC 32.9 RDW 16.0 H Plt Count 277 MPV 8.1 D Sodium 134 L Potassium 4.2 Chloride 104 Carbon Dioxide 23 Anion Gap 7 L BUN 15 Creatinine 0.9 Creat Clearance w eGFR 63.87 Random Glucose 123 H Calcium 8.6 Total Bilirubin 0.4 AST 17 ALT 18 Alkaline Phosphatase 69 Total Protein 6.4 Albumin 3.2 L RPR Titer Nonreactive aaox3 ambulating no acute distress Assessment: 12/11/18 09:56 mild withdrawal sx Plan: hold 10am librium dose continue with rest of detox regimen increase fluids d/c in am
[2018-12-11] MEDS: CLOPIDOGREL BISULFATE 75 MG TABLET (FP) PO SCH (10:09)
[2018-12-11] MEDS: HYDROCORTISONE 2.5% TOPICAL CREAM 30 GM TUBE TP SCH ×2 (10:09→22:11)
[2018-12-11] MEDS: PRENATAL VITAMINS W/ FOLIC ACID TABLET (FP) PO SCH (10:09)
[2018-12-11] MEDS: PANTOPRAZOLE 40 MG TABLET (FP) PO SCH (10:09)
[2018-12-11] MEDS: ATENOLOL 50 MG TABLET (FP) PO SCH (10:09)
[2018-12-11] MEDS: ASPIRIN 81 MG CHEWABLE TABLETS PO SCH (10:09)
[2018-12-11] MEDS: AMIODARONE HCL 200 MG TABLET (FP) PO SCH (12:47)
[2018-12-11] MEDS: THIAMINE HCL 100 MG TABLET (FP) PO SCH (22:12)
[2018-12-11] MEDS: ATORVASTATIN CA 80 MG TABLET (FP) PO SCH (22:12)
[2018-12-11] MEDS: MELATONIN 5 MG TABLETS PO PRN (22:13)
[2018-12-11] MEDS ORDERED: chlordiazePOXIDE HCL 10 MG CAPSULE PO SCH (23:00)
[2018-12-12] MEDS ORDERED: chlordiazePOXIDE HCL 10 MG CAPSULE PO ONE (06:00)
--- NOTE | 2018-12-12 08:16 | DS ---
[facility] Detox Discharge Summary Admission Date: 12/08/18 Discharge Date: 12/12/18 - History Present History: Alcohol Dependence - Physical Exam Results Vital Signs: Vital Signs Temperature 97.7 F 12/12/18 07:44 Pulse Rate 71 12/12/18 07:44 Respiratory Rate 18 12/12/18 07:44 Blood Pressure 138/78 12/12/18 07:44 O2 Sat by Pulse Oximetry (%) - Treatment Hospital Course: Detox Protocol Followed, Detoxed Safely, Responded well, Discharged Condition Good, Rehab Referral Accepted - Medication Discharge Medications: Ambulatory Orders Atenolol [Tenormin -] 50 mg PO DAILY 07/13/16 Aspirin [ASA -] 81 mg PO DAILY #30 tab 03/15/17 Atorvastatin Ca [Lipitor] 80 mg PO HS #30 tab 03/15/17 Clopidogrel Bisulfate [Clopidogrel] 75 mg PO DAILY #30 tab 03/15/17 Amiodarone HCl [Cordarone -] 200 mg PO DAILY 08/01/18 Pantoprazole Sodium 40 mg PO DAILY 08/01/18 Amoxicillin/Potassium Clav [Augmentin 875-125 Tablet] 1 each PO BID #20 tablet 08/02/18 - AMA Did Patient Leave Against Medical Advice: No (pt declined rehab; going to PCP)
[2018-12-12] MEDS: ASPIRIN 81 MG CHEWABLE TABLETS PO SCH (09:28)
[2018-12-12] MEDS: AMIODARONE HCL 200 MG TABLET (FP) PO SCH (09:28)
[2018-12-12] MEDS: PRENATAL VITAMINS W/ FOLIC ACID TABLET (FP) PO SCH (09:28)
[2018-12-12] MEDS: CLOPIDOGREL BISULFATE 75 MG TABLET (FP) PO SCH (09:28)
[2018-12-12] MEDS: ATENOLOL 50 MG TABLET (FP) PO SCH (09:28)
[2018-12-12] MEDS: HYDROCORTISONE 2.5% TOPICAL CREAM 30 GM TUBE TP SCH (09:29)
[2018-12-12] MEDS: PANTOPRAZOLE 40 MG TABLET (FP) PO SCH (09:29)
[2018-12-12 09:39] VITALS: BP 160/89; PULSE 77; TEMP 98.1
== END 2018-12-12 09:32 | disposition home or self-care (01) | DRG 897 ==
LOC: YASAS 20:14 → Y6N 21:46
PROVIDERS: ADMIT Surgery; ATTEND Surgery
PROC: HZ2ZZZZ Detoxification Services for Substance Abuse Treatment (ICD-10-PCS; principal; 2018-12-08)
DX: F10.230 Alcohol dependence with withdrawal, uncomplicated (principal); I42.1 Obstructive hypertrophic cardiomyopathy; F32.9 Major depressive disorder, single episode, unspecified; I25.10 Atherosclerotic heart disease of native coronary artery without angina pectoris; I10 Essential (primary) hypertension; Z95.5 Presence of coronary angioplasty implant and graft; I25.2 Old myocardial infarction; E78.00 Pure hypercholesterolemia, unspecified; Z87.891 Personal history of nicotine dependence; Z87.19 Personal history of other diseases of the digestive system
CPT/HCPCS: 36415; 80053; 85027; 86593; 93005; 93010

== ENCOUNTER 2019-02-02 22:38 | Inpatient (IN) | payer OTHER ==
[2019-02-02 23:02] VITALS: BMI 29.1
--- NOTE | 2019-02-02 23:34 | HP ---
CIWA Score Nausea/Vomitin-No Nausea/No Vomiting Muscle Tremors: None Anxiety: 4-Mod. Anxious/Guarded Agitation: 4-Moderately Restless Paroxysmal Sweats: 3 Orientation: 1-Uncertain about Date Tacttile Disturbances: 0-None Auditory Disturbances: 0-None Visual Disturbances: 0-None Headache: 0-None Present CIWA-Ar Total Score: 12 - Admission Criteria OASAS Guidelines: Admission for Medically Managed Detox: Requires at least one of the followin. CIWA greater than 12 2. Seizures within the past 24 hours 3. Delirium tremens within the past 24 hours 4. Hallucinations within the past 24 hours 5. Acute intervention needed for co occurring medical disorder 6. Acute intervention needed for co occurring psychiatric disorder 7. Severe withdrawal that cannot be handled at a lower level of care (continued vomiting, continued diarrhea, abnormal vital signs) requiring intravenous medication and/or fluids 8. Patient presents the following: CIWA greater than 12 Admission Criteria Met: Admission criteria met Admission ROS [facility] Chief Complaint: C/O WORSENING WITHDRAWAL SX'S. SEEKING DETOX Allergies/Adverse Reactions: Allergies Allergy/AdvReac Type Severity Reaction Status Date / Time metoprolol Allergy Severe Itching Verified 02/02/19 22:52 History of Present Illness: 58 Y.O. FEMLAE WITH ALCOHOLISM HERE FOR DETOX. SHE IS SLEF REFERRED. PRESENTS TODAY WITH C/O WORSENING WITHDRAWAL SX'S. CIWA 12. REPORTS DRINKING DAILY AND NEEDING MORNING EYE DATABASES COMPUTER CONSULTANT UNABLE TO STOP DUE TO WITHDRAWAL SX'S. LAST DRINK A FEW HOURS AGO. REPORTS LONGEST SOBRIETY 3 YEARS. DENIES HX/O SEIZURES, BLACKOUTS , SI/HI/AVH. DOMICILED, UNEMPLOYED- DISABLED, DENIES LEGALS Exam Limitations: No Limitations - Ebola screening Have you traveled outside of the country in the last 21 days: No Have you had contact with anyone from an Ebola affected area: No Have you been sick,other than usual withdrawal symptoms: No - Review of Systems Constitutional: Chills, Night Sweats, Changes in sleep EENT: reports: Blurred Vision (CHRONIC), Hearing Loss (CHRONIC BOTH), Dental Problems (MISSING TEETH) Respiratory: reports: Shortness of Breath Cardiac: reports: No Symptoms Reported GI: reports: Poor Fluid Intake : reports: No Symptoms Reported Musculoskeletal: reports: No Symptoms Reported Integumentary: reports: Sweating Neuro: reports: No Symptoms reported Endocrine: reports: No Symptoms Reported Hematology: reports: Easy Bruising Psychiatric: reports: Orientated x3, Anxious, Depressed (DENIES SI/HI/AVH) Other Systems: Reviewed and Negative Patient History - Patient Medical History Hx Anemia: No Hx Asthma: No Hx Chronic Obstructive Pulmonary Disease (COPD): No Hx Cancer: No Hx Cardiac Disorders: Yes (HYPERTROPHIC CARDIOMYOPATHY with Arrythmia) Hx Congestive Heart Failure: No Hx Hypertension: Yes (Amiodarone, atenolol, aspirin) Hx Hypercholesterolemia: Yes (Atorvastatin) Hx Pacemaker: Yes HX Cerebrovascular Accident: No Hx Seizures: No Hx Dementia: No Hx Diabetes: No Hx Gastrointestinal Disorders: Yes (Pantoprazole) Hx Liver Disease: No Hx Genitourinary Disorders: No Hx Sexually Transmitted Disorders: No Hx Renal Disease (ESRD): No Hx Thyroid Disease: No Hx Human Immunodeficiency Virus (HIV): No Hx Hepatitis C: No Hx Depression: No Hx Suicide Attempt: No (Denies suicidal ideation at this time) Hx Bipolar Disorder: No Hx Schizophrenia: No - Patient Surgical History Past Surgical History: Yes Hx Neurologic Surgery: No Hx Cataract Extraction: No Hx Cardiac Surgery: Yes (S/P AICD/PPM 2015) Hx Lung Surgery: No Hx Breast Surgery: No Hx Breast Biopsy: Yes (Left breast biopsy 40 yrs ago, (+) Benign) Hx Abdominal Surgery: No Hx Appendectomy: No Hx Cholecystectomy: No Hx Genitourinary Surgery: No Hx Section: No Hx Orthopedic Surgery: No Hx Hysterectomy: No Anesthesia Reaction: No - PPD History Previous Implant?: Yes Documented Results: Negative w/proof Implanted On Prior [facility] Admission?: Yes Date: 12/10/18 Results: 0 mm PPD to be Administered?: No - Reproductive History Patient is a Female of Child Bearing Age (11 -55 yrs old): No Patient : No ([facility]) - Smoking Cessation Smoking history: Former smoker Have you smoked in the past 12 months: Yes Aproximately how many cigarettes per day: 10 Cigars Per Day: 0 Hx Chewing Tobacco Use: No Initiated information on smoking cessation: Yes 'Breaking Loose' booklet given: 02/02/19 - Substance & Tx. History Hx Alcohol Use: Yes Hx Substance Use: Yes Substance Use Type: Alcohol Hx Substance Use Treatment: Yes ([facility]) - Substances abused Alcohol Other (specify): BEER Substance route: Oral Frequency: Daily Amount used: 16 (12oz) cans of beers Age of first use: 13 Date of last use: 02/02/19 Family Disease History - Family Disease History Family Disease History: Heart Disease: Sister (htn, etoh), Daughter, CA: Father (lung cancer (alive)), Other: Father, Mother (dementia (alive)), Sister, Daughter Admission Physical Exam [facility] - Vital Signs Vital Signs: Vital Signs - 24 hr 02/02/19 22:51 Temperature 99.2 F Pulse Rate 64 Respiratory 20 Rate Blood Pressure 148/78 - Physical General Appearance: Yes: Anxious, Other (depressed affect) HEENTM: Yes: EOMI, Normocephalic, Normal Voice, SALUD, Pharynx Normal, Hearing Decreased ([place] both ears), Other (missing teeth) Respiratory: Yes: Chest Non-Tender, Lungs Clear, Normal Breath Sounds, No Respiratory Distress, No Accessory Muscle Use Neck: Yes: No masses,lesions,Nodules, Supple, Trachea in good position Breast: Yes: Breast Exam Deferred Cardiology: Yes: Regular Rate, S1, S2 Abdominal: Yes: Normal Bowel Sounds, Non Tender, Soft, Protuberent Genitourinary: Yes: Within Normal Limits Back: Yes: Normal Inspection Musculoskeletal: Yes: full range of Motion, Gait Steady Extremities: Yes: Normal Capillary Refill, Normal Range of Motion, Non-Tender Neurological: Yes: Alert, Motor Strength 5/5, Depressed Affect Integumentary: Yes: Dry, Warm Lymphatic: Yes: Within Normal Limits - Diagnostic (1) Pacemaker Current Visit: Yes Status: Chronic (2) Alcohol-induced mood disorder Current Visit: Yes Status: Suspected (3) Shortness of breath Current Visit: Yes Status: Chronic (4) Ventricular tachycardia Current Visit: Yes Status: Chronic (5) Depression Current Visit: Yes Status: Suspected (6) HOCM (hypertrophic obstructive cardiomyopathy) Current Visit: Yes Status: Chronic (7) HTN (hypertension) Current Visit: Yes Status: Chronic Qualifiers: Hypertension type: essential hypertension Qualified Code(s): I10 - Essential (primary) hypertension (8) Hyperlipidemia Current Visit: Yes Status: Chronic Qualifiers: Hyperlipidemia type: pure hypercholesterolemia Qualified Code(s): E78.00 - Pure hypercholesterolemia, unspecified (9) Hypertensive hypertrophic cardiomyopathy, without heart failure Current Visit: Yes Status: Chronic (10) Hypertrophic cardiomyopathy Current Visit: Yes Status: Chronic (11) Nicotine dependence Current Visit: Yes Status: Chronic Qualifiers: Nicotine product type: cigarettes Substance use status: uncomplicated Qualified Code(s): F17.210 - Nicotine dependence, cigarettes, uncomplicated (12) At risk for dehydration due to poor fluid intake Current Visit: Yes Status: Acute Cleared for Admission S - Detox or Rehab [facility] Level of Care: Medically Managed Detox Regimen/Protocol: Librium Claeared for Rehab Admission: No Breathalyzer - Breathalyzer Breathalyzer: 0.123 Urine Drug Screen - Test Device Lot number: [id number] Expiration date: 05/27/20 - Control Is test valid?: Yes - Results Drug screen NEGATIVE: Yes Inpatient Rehab Admission - Rehab Decision to Admit Inpatient rehab admission?: No
[2019-02-02] MEDS ORDERED: ACETAMINOPHEN 325 MG TABLET (FP) PO PRN (23:39)
[2019-02-02] MEDS ORDERED: BISMUTH SUBSALICYLATE 524 MG/30 ML UD PO PRN (23:39)
[2019-02-02] MEDS ORDERED: IBUPROFEN 400 MG TABLET (FP) PO PRN (23:39)
[2019-02-02] MEDS ORDERED: DICYCLOMINE HCL 10 MG CAPSULE PO PRN (23:39)
[2019-02-02] MEDS ORDERED: guaiFENesin 200 MG/10 ML 10 ML UNIT-DOSE CUPS PO PRN (23:39)
[2019-02-02] MEDS ORDERED: MELATONIN 5 MG TABLETS PO PRN (23:39)
[2019-02-02] MEDS ORDERED: chlordiazePOXIDE HCL 25 MG CAPSULE PO PRN (23:39)
[2019-02-02] MEDS ORDERED: MENTHOL/PHENOL 1 EACH UD MM PRN (23:39)
[2019-02-02] MEDS ORDERED: MAG HYDROX/AL HYDROX/SIMETH 30 ML UNIT-DOSE CUP PO PRN (23:39)
[2019-02-02] MEDS ORDERED: NICOTINE POLACRILEX 2 MG GUM BUC PRN (23:39)
[2019-02-02] MEDS ORDERED: P-EPHED 60MG/TRIPROLIDI 2.5MG TABLET PO PRN (23:39)
[2019-02-02] MEDS ORDERED: MAGNESIUM CITRATE 300 ML BOTTLE PO PRN (23:39)
[2019-02-02] MEDS ORDERED: ONDANSETRON *ODT* 4 MG TABLET SL PRN (23:39)
[2019-02-02] MEDS ORDERED: METHOCARBAMOL 500 MG TABLET PO PRN (23:39)
[2019-02-02] MEDS ORDERED: MAGNESIUM HYDROX 2400MG/30ML ORAL SUSPENSION 30 ML CUP PO PRN (23:39)
[2019-02-03] MEDS: chlordiazePOXIDE HCL 25 MG CAPSULE PO SCH ×5 (05:40→22:16)
[2019-02-03] MEDS: PRENATAL VITAMINS W/ FOLIC ACID TABLET (FP) PO SCH (10:22)
[2019-02-03] MEDS: CLOPIDOGREL BISULFATE 75 MG TABLET (FP) PO SCH (10:22)
[2019-02-03] MEDS: PANTOPRAZOLE 40 MG TABLET (FP) PO SCH (10:22)
[2019-02-03] MEDS: ASPIRIN 81 MG CHEWABLE TABLETS PO SCH (10:22)
[2019-02-03 10:37] LABS: URINE APPEARANCE CLEAR; URINE BILIRUBIN NEGATIVE (NEGATIVE); URINE COLOR YELLOW; URINE GLUCOSE (UA) NEGATIVE (NEGATIVE); URINE KETONE NEGATIVE (NEGATIVE); URINE LEUK ESTERASE NEGATIVE (NEGATIVE); URINE NITRITE NEGATIVE (NEGATIVE); URINE PROTEIN NEGATIVE (NEGATIVE); URINE UROBILINOGEN 0.2 mg/dL (0.2-1.0)
[2019-02-03 10:39] LABS: ALBUMIN 3.5 g/dl (3.4-5.0); BILIRUBIN,TOTAL 0.6 mg/dL (0.2-1); BLOOD UREA NITROGEN 9.5 mg/dL (7-18); CALCIUM 8.9 mg/dL (8.5-10.1); CREATININE 0.8 mg/dL (0.55-1.3); POTASSIUM 4.5 mmol/L (3.5-5.1); TOT PROT 6.8 g/dl (6.4-8.2)
[2019-02-03] MEDS: AMIODARONE HCL 200 MG TABLET (FP) PO SCH (10:55)
[2019-02-03] MEDS: FOLIC ACID 1 MG TABLET (FP) PO SCH (10:55)
[2019-02-03 10:57] LABS: HEMATOCRIT 39.9 % (32.4-45.2); HEMOGLOBIN 13.5 GM/dL (10.7-15.3); MCH 31.3 pg (25.7-33.7); MCHC 33.7 g/dl (32.0-36.0); MEAN CELL VOLUME 92.9 fl (80-96); MEAN PLT VOLUME 8.6 fl (7.5-11.1); RDW 15.5 % (11.6-15.6)
--- NOTE | 2019-02-03 12:12 | CONSULT ---
[facility] Psychiatric Consult - Data Date of interview: 02/03/19 Admission source: Self-referred Identifying data: Ms Hassan is a 58 years old single Black female, mother of a 42 years old, unemployed receiving SSD, domiciled seeking detox treatment for alcohol Substance Abuse History: Reports history of alcohol use. Refer to addiction counselor's summary for further information Medical History: Significant for hypertension, hypercholesterolemia, GERD and hypertrophic cardiomyopathy (pacemaker in place since January 2016). Smokes 10 cigarettes daily Psychiatric History: Denies previous psychiatric admission. However, reports 7 years ago in [facility] she was admitted to a psychiatric josé for alcohol detoxification as there was no bed available on the detox unit. Reports being diagnosed with MDD 6-7 years ago in [facility] and started seing a therapist and a psychiatrist who prescribed her medication. Reports that though she continued to see the therapist for a significant period of time, she did not see that psychiatrist for long and stopped taking the medication. She has no recollection of name of tht medication. However, reports that she was prescribed Trazadone 50 mg/hs by her primary care physician in [facility]. She said thar she relocated to [facility] in 2014 and has not received OPD care since. She saw Dr Roberts while admitted to this facility in February 2017 and she was prescribed Trazadone 50 mg/hs for insomnia. She is currently taking any mpsychotropic medication. Patient denies history of suicide attempt. At present , denies depressive symptoms,S/H ideations. However, reports sleeping poorly Physical/Sexual Abuse/Trauma History: Denies history of emotional, physical or sexual abuse as well as DV relationship. Additional Comment: Reports 2 previous misdemeanor arrests on charges of shoplifting and DWI. Denies being on probation at present Mental Status Exam - Mental Status Exam Alert and Oriented to: Time, Place, Person Cognitive Function: Fair Patient Appearance: Well Groomed Mood: Hopeful, Euthymic Affect: Appropriate Patient Behavior: Cooperative Speech Pattern: Clear Voice Loudness: Normal Thought Process: Goal Oriented Thought Disorder: Not Present Hallucinations: Denies Suicidal Ideation: Denies Homicidal Ideation: Denies Insight/Judgement: Poor Sleep: Poorly Appetite: Good Muscle strength/Tone: Normal Gait/Station: Normal Psychiatric Findings - Problem List ([place] 1, 2,3) (1) Depressive disorder Current Visit: Yes Status: Chronic (2) MDD (major depressive disorder) Current Visit: Yes Status: Ruled-out (3) Alcohol-induced mood disorder Current Visit: Yes Status: Ruled-out (4) Alcohol dependence with uncomplicated withdrawal Current Visit: Yes Status: Acute (5) Nicotine dependence Current Visit: Yes Status: Chronic Qualifiers: Nicotine product type: cigarettes Substance use status: uncomplicated Qualified Code(s): F17.210 - Nicotine dependence, cigarettes, uncomplicated (6) HTN (hypertension) Current Visit: Yes Status: Chronic Qualifiers: Hypertension type: essential hypertension Qualified Code(s): I10 - Essential (primary) hypertension (7) Hyperlipidemia Current Visit: Yes Status: Chronic Qualifiers: Hyperlipidemia type: pure hypercholesterolemia Qualified Code(s): E78.00 - Pure hypercholesterolemia, unspecified (8) Hypertensive hypertrophic cardiomyopathy, without heart failure Current Visit: Yes Status: Chronic (9) History of cardiac pacemaker in situ Current Visit: No Status: Chronic - Initial Treatment Plan Initial Treatment Plan: 1) Start Melatonin 5 mg po HS prn for insomnia. 2) Continue inpatient detoxification
--- NOTE | 2019-02-03 15:32 | PN ---
S CIWA - CIWA Score Nausea/Vomitin Muscle Tremors: 4-Moderate,w/Arms Extend Anxiety: 4-Mod. Anxious/Guarded Agitation: 4-Moderately Restless Paroxysmal Sweats: 3 Orientation: 0-Oriented Tacttile Disturbances: 0-None Auditory Disturbances: 0-None Visual Disturbances: 0-None Headache: 0-None Present CIWA-Ar Total Score: 17 BHS Progress Note (SOAP) Subjective: Sweating a lot, feels like poop (lots of withdrawal symptoms) Objective: 02/03/19 15:29 Last Vital Signs Temp Pulse Resp BP Pulse Ox 98.4 F 83 16 164/77 02/03/19 14:00 02/03/19 14:00 02/03/19 14:00 02/03/19 14:00 Elevated b/p: has htn, on medication Laboratory Tests 02/03/19 02/03/19 02/03/19 07:30 07:30 07:30 WBC 5.0 RBC 4.30 Hgb 13.5 Hct 39.9 MCV 92.9 MCH 31.3 MCHC 33.7 RDW 15.5 MPV 8.6 Sodium 135 L Potassium 4.5 Chloride 104 Carbon Dioxide 25 Anion Gap 7 L BUN 9.5 Creatinine 0.8 Est GFR (CKD-EPI)AfAm 92.87 Est GFR (CKD-EPI)NonAf 80.13 Random Glucose 85 Calcium 8.9 Total Bilirubin 0.6 AST 24 ALT 19 Alkaline Phosphatase 78 Total Protein 6.8 Albumin 3.5 Urine Color Urine Appearance Urine pH Ur Specific [place] Urine Protein Urine Glucose (UA) Urine Ketones Urine Blood Urine Nitrite Urine Bilirubin Urine Urobilinogen Ur Leukocyte Esterase RPR Titer Nonreactive 02/03/19 08:30 WBC RBC Hgb Hct MCV MCH MCHC RDW MPV Sodium Potassium Chloride Carbon Dioxide Anion Gap BUN Creatinine Est GFR (CKD-EPI)AfAm Est GFR (CKD-EPI)NonAf Random Glucose Calcium Total Bilirubin AST ALT Alkaline Phosphatase Total Protein Albumin Urine Color Yellow Urine Appearance Clear Urine pH 5.0 D Ur Specific [place] 1.003 L Urine Protein Negative Urine Glucose (UA) Negative Urine Ketones Negative Urine Blood Negative Urine Nitrite Negative Urine Bilirubin Negative Urine Urobilinogen 0.2 Ur Leukocyte Esterase Negative RPR Titer Labs reviewed Assessment: 02/03/19 15:30 Withdrawal symptoms Plan: Continue detox Encouraged to request prn medication to manage withdrawal symptoms Encouraged PO water hydration
[2019-02-03 18:08] LABS: PLATELET COUNT 393 K/MM3 (134-434)
[2019-02-03] MEDS: ATENOLOL 50 MG TABLET (FP) PO SCH (18:26)
[2019-02-03] MEDS: ATORVASTATIN CA 80 MG TABLET (FP) PO SCH (22:16)
[2019-02-04] MEDS: ACETAMINOPHEN 325 MG TABLET (FP) PO PRN (06:00)
[2019-02-04] MEDS: chlordiazePOXIDE HCL 25 MG CAPSULE PO SCH ×3 (06:17→16:55)
--- NOTE | 2019-02-04 09:50 | PN ---
[facility] CIWA - CIWA Score Nausea/Vomitin-No Nausea/No Vomiting Muscle Tremors: 3 Anxiety: 2 Agitation: 3 Paroxysmal Sweats: 3 Orientation: 0-Oriented Tacttile Disturbances: 0-None Auditory Disturbances: 0-None Visual Disturbances: 0-None Headache: 0-None Present CIWA-Ar Total Score: 11 S Progress Note (SOAP) Subjective: sweats last night chills body aches interrupted sleep headache Objective: 02/04/19 09:49 Vital Signs Temperature 97.9 F 02/04/19 09:19 Pulse Rate 73 02/04/19 09:19 Respiratory Rate 18 02/04/19 09:19 Blood Pressure 149/75 02/04/19 09:19 O2 Sat by Pulse Oximetry (%) Laboratory Tests 02/03/19 02/03/19 02/03/19 07:30 07:30 07:30 WBC 5.0 RBC 4.30 Hgb 13.5 Hct 39.9 MCV 92.9 MCH 31.3 MCHC 33.7 RDW 15.5 Plt Count 393 D MPV 8.6 Sodium 135 L Potassium 4.5 Chloride 104 Carbon Dioxide 25 Anion Gap 7 L BUN 9.5 Creatinine 0.8 Est GFR (CKD-EPI)AfAm 92.87 Est GFR (CKD-EPI)NonAf 80.13 Random Glucose 85 Calcium 8.9 Total Bilirubin 0.6 AST 24 ALT 19 Alkaline Phosphatase 78 Total Protein 6.8 Albumin 3.5 Urine Color Urine Appearance Urine pH Ur Specific [place] Urine Protein Urine Glucose (UA) Urine Ketones Urine Blood Urine Nitrite Urine Bilirubin Urine Urobilinogen Ur Leukocyte Esterase RPR Titer Nonreactive 02/03/19 08:30 WBC RBC Hgb Hct MCV MCH MCHC RDW Plt Count MPV Sodium Potassium Chloride Carbon Dioxide Anion Gap BUN Creatinine Est GFR (CKD-EPI)AfAm Est GFR (CKD-EPI)NonAf Random Glucose Calcium Total Bilirubin AST ALT Alkaline Phosphatase Total Protein Albumin Urine Color Yellow Urine Appearance Clear Urine pH 5.0 D Ur Specific [place] 1.003 L Urine Protein Negative Urine Glucose (UA) Negative Urine Ketones Negative Urine Blood Negative Urine Nitrite Negative Urine Bilirubin Negative Urine Urobilinogen 0.2 Ur Leukocyte Esterase Negative RPR Titer labs noted aaox3 ambulating no acute distress Assessment: 02/04/19 09:50 withdrawal sx Plan: continue detox motrin/tylenol prn increase fluids
[2019-02-04] MEDS: FOLIC ACID 1 MG TABLET (FP) PO SCH (10:14)
[2019-02-04] MEDS: AMIODARONE HCL 200 MG TABLET (FP) PO SCH (10:14)
[2019-02-04] MEDS: PANTOPRAZOLE 40 MG TABLET (FP) PO SCH (10:15)
[2019-02-04] MEDS: ASPIRIN 81 MG CHEWABLE TABLETS PO SCH (10:15)
[2019-02-04] MEDS: ATENOLOL 50 MG TABLET (FP) PO SCH (10:15)
[2019-02-04] MEDS: PRENATAL VITAMINS W/ FOLIC ACID TABLET (FP) PO SCH (10:15)
[2019-02-04] MEDS: CLOPIDOGREL BISULFATE 75 MG TABLET (FP) PO SCH (10:15)
[2019-02-04] MEDS: RANITIDINE HCL 150 MG TABLET (FP) PO SCH (22:11)
[2019-02-04] MEDS: chlordiazePOXIDE HCL 10 MG CAPSULE PO SCH (22:11)
[2019-02-04] MEDS: ATORVASTATIN CA 80 MG TABLET (FP) PO SCH (22:11)
[2019-02-04] MEDS ORDERED: chlordiazePOXIDE HCL 10 MG CAPSULE PO PRN (23:00)
[2019-02-05] MEDS: ACETAMINOPHEN 325 MG TABLET (FP) PO PRN ×2 (05:35→22:18)
[2019-02-05] MEDS: chlordiazePOXIDE HCL 10 MG CAPSULE PO SCH ×4 (05:36→22:17)
[2019-02-05] MEDS: CLOPIDOGREL BISULFATE 75 MG TABLET (FP) PO SCH (10:19)
[2019-02-05] MEDS: ASPIRIN 81 MG CHEWABLE TABLETS PO SCH (10:19)
[2019-02-05] MEDS: RANITIDINE HCL 150 MG TABLET (FP) PO SCH (10:20)
[2019-02-05] MEDS: PRENATAL VITAMINS W/ FOLIC ACID TABLET (FP) PO SCH (10:20)
[2019-02-05] MEDS: ATENOLOL 50 MG TABLET (FP) PO SCH (10:21)
--- NOTE | 2019-02-05 11:21 | PN ---
S CIWA - CIWA Score Nausea/Vomitin-No Nausea/No Vomiting Muscle Tremors: 3 Anxiety: 2 Agitation: 2 Paroxysmal Sweats: 2 Orientation: 0-Oriented Tacttile Disturbances: 0-None Auditory Disturbances: 0-None Visual Disturbances: 0-None Headache: 0-None Present CIWA-Ar Total Score: 9 BHS Progress Note (SOAP) Subjective: tired sweats interrupted sleep I dont like the way zantac makes me feel ,I want protonix. Objective: 02/05/19 11:18 Vital Signs Temperature 97.9 F 02/05/19 10:12 Pulse Rate 64 02/05/19 10:12 Respiratory Rate 18 02/05/19 10:12 Blood Pressure 146/76 02/05/19 10:12 O2 Sat by Pulse Oximetry (%) aaox3 ambulating no acute distress Assessment: 02/05/19 11:21 withdrawal sx Plan: continue detox increase fluids zantac d/c protonix 40mg ordered
[2019-02-05] MEDS: FOLIC ACID 1 MG TABLET (FP) PO SCH (14:20)
[2019-02-05] MEDS: PANTOPRAZOLE 40 MG TABLET (FP) PO SCH (14:24)
--- NOTE | 2019-02-05 18:54 | PN ---
S Progress Note Note: pt did not receive 10 AM dose of amiodarone- dose to be given now.
[2019-02-05] MEDS ORDERED: AMIODARONE HCL 200 MG TABLET (FP) PO ONE (19:15)
[2019-02-05] MEDS: ATORVASTATIN CA 80 MG TABLET (FP) PO SCH (22:17)
[2019-02-06] MEDS: ACETAMINOPHEN 325 MG TABLET (FP) PO PRN ×2 (05:20→22:59)
[2019-02-06] MEDS: ASPIRIN 81 MG CHEWABLE TABLETS PO SCH (10:17)
[2019-02-06] MEDS: chlordiazePOXIDE HCL 10 MG CAPSULE PO SCH ×2 (10:17→22:30)
[2019-02-06] MEDS: FOLIC ACID 1 MG TABLET (FP) PO SCH (10:18)
[2019-02-06] MEDS: PANTOPRAZOLE 40 MG TABLET (FP) PO SCH (10:18)
[2019-02-06] MEDS: ATENOLOL 50 MG TABLET (FP) PO SCH (10:18)
[2019-02-06] MEDS: PRENATAL VITAMINS W/ FOLIC ACID TABLET (FP) PO SCH (10:18)
[2019-02-06] MEDS: AMIODARONE HCL 200 MG TABLET (FP) PO SCH (10:18)
[2019-02-06] MEDS: CLOPIDOGREL BISULFATE 75 MG TABLET (FP) PO SCH (10:18)
--- NOTE | 2019-02-06 11:29 | PN ---
S CIWA - CIWA Score Nausea/Vomitin-No Nausea/No Vomiting Muscle Tremors: 2 Anxiety: 1-Mildly Anxious Agitation: 1-Slight > Activity Paroxysmal Sweats: 1-Minimal Palms Moist Orientation: 0-Oriented Tacttile Disturbances: 0-None Auditory Disturbances: 0-None Visual Disturbances: 0-None Headache: 0-None Present CIWA-Ar Total Score: 5 BHS Progress Note (SOAP) Subjective: headache little anxious Objective: 02/06/19 11:28 Vital Signs Temperature 97.5 F L 02/06/19 10:01 Pulse Rate 66 02/06/19 10:01 Respiratory Rate 18 02/06/19 10:01 Blood Pressure 158/76 02/06/19 10:01 O2 Sat by Pulse Oximetry (%) aaox3 ambulating no acute distress Assessment: 02/06/19 11:28 mild withdrawal sx Plan: continue detox increase fluids tylenol/motrin prn d/c in am
[2019-02-06] MEDS: ATORVASTATIN CA 80 MG TABLET (FP) PO SCH (22:30)
[2019-02-07] MEDS: ACETAMINOPHEN 325 MG TABLET (FP) PO PRN (06:27)
--- NOTE | 2019-02-07 08:29 | DS ---
[facility] Detox Discharge Summary Admission Date: 02/02/19 Discharge Date: 02/07/19 - History Present History: Alcohol Dependence - Physical Exam Results Vital Signs: Vital Signs Temperature 97.7 F 02/07/19 07:10 Pulse Rate 65 02/07/19 07:10 Respiratory Rate 18 02/07/19 07:10 Blood Pressure 158/84 02/07/19 07:10 O2 Sat by Pulse Oximetry (%) - Treatment Hospital Course: Detox Protocol Followed, Detoxed Safely, Responded well, Discharged Condition Good, Rehab Referral Accepted - Diagnosis (1) Alcohol dependence with uncomplicated withdrawal Current Visit: Yes Status: Chronic (2) Depressive disorder Current Visit: Yes Status: Chronic (3) HOCM (hypertrophic obstructive cardiomyopathy) Current Visit: Yes Status: Chronic (4) HTN (hypertension) Current Visit: Yes Status: Chronic Qualifiers: Hypertension type: essential hypertension Qualified Code(s): I10 - Essential (primary) hypertension (5) Hyperlipidemia Current Visit: Yes Status: Chronic Qualifiers: Hyperlipidemia type: pure hypercholesterolemia Qualified Code(s): E78.00 - Pure hypercholesterolemia, unspecified (6) Hypertensive hypertrophic cardiomyopathy, without heart failure Current Visit: Yes Status: Chronic (7) Nicotine dependence Current Visit: Yes Status: Chronic Qualifiers: Nicotine product type: cigarettes Substance use status: uncomplicated Qualified Code(s): F17.210 - Nicotine dependence, cigarettes, uncomplicated (8) Pacemaker Current Visit: Yes Status: Chronic (9) Ventricular tachycardia Current Visit: Yes Status: Chronic (10) Depression Current Visit: Yes Status: Suspected (11) Alcohol-induced mood disorder Current Visit: Yes Status: Ruled-out (12) MDD (major depressive disorder) Current Visit: Yes Status: Ruled-out (13) Drug-induced mood disorder Current Visit: No Status: Acute (14) History of cardiac pacemaker in situ Current Visit: No Status: Chronic - AMA Did Patient Leave Against Medical Advice: No (pt declined rehab; pt perfer to see her PCP and attend [facility])
[2019-02-07 09:24] VITALS: BP 149/78; PULSE 71; TEMP 98.2
[2019-02-07] MEDS: ASPIRIN 81 MG CHEWABLE TABLETS PO SCH (09:38)
[2019-02-07] MEDS: PANTOPRAZOLE 40 MG TABLET (FP) PO SCH (09:39)
[2019-02-07] MEDS: ATENOLOL 50 MG TABLET (FP) PO SCH (09:39)
[2019-02-07] MEDS: CLOPIDOGREL BISULFATE 75 MG TABLET (FP) PO SCH (09:39)
[2019-02-07] MEDS: PRENATAL VITAMINS W/ FOLIC ACID TABLET (FP) PO SCH (09:39)
[2019-02-07] MEDS: AMIODARONE HCL 200 MG TABLET (FP) PO SCH (09:39)
[2019-02-07] MEDS: FOLIC ACID 1 MG TABLET (FP) PO SCH (09:41)
== END 2019-02-07 09:43 | disposition home or self-care (01) | DRG 897 ==
LOC: YASAS 22:38 → Y6N 23:56
PROVIDERS: ADMIT Surgery; ATTEND Surgery
PROC: HZ2ZZZZ Detoxification Services for Substance Abuse Treatment (ICD-10-PCS; principal; 2019-02-02)
DX: F19.230 Other psychoactive substance dependence with withdrawal, uncomplicated (principal); I42.1 Obstructive hypertrophic cardiomyopathy; I47.2 Ventricular tachycardia; F10.230 Alcohol dependence with withdrawal, uncomplicated; F10.24 Alcohol dependence with alcohol-induced mood disorder; F17.210 Nicotine dependence, cigarettes, uncomplicated; F32.9 Major depressive disorder, single episode, unspecified; F19.24 Other psychoactive substance dependence with psychoactive substance-induced mood disorder; I10 Essential (primary) hypertension; E78.5 Hyperlipidemia, unspecified; R63.8 Other symptoms and signs concerning food and fluid intake; Z59.0 Homelessness
CPT/HCPCS: 36415; 80053; 81003; 81025; 85027; 86593